=== PATIENT | male | born 1950 | race Caucasian/White ===

== ENCOUNTER 2020-02-29 10:19 | Emergency (ER) | payer MEDICARE, MEDICAID, SELFPAY ==
[2020-02-29] VITALS (10 sets, daily range): BP systolic 150–189; BP diastolic 99–131; PULSE 84–112; RESP 18; TEMP 36.6; O2SAT 93–98; BMI 27.1
--- NOTE | 2020-02-29 10:33 | XRR_ITS ---
PROCEDURE INFORMATION: Exam: XR Chest, 1 View Exam date and time: 02/29/2020 10:48 AM Age: 69 years old Clinical indication: Chest pain TECHNIQUE: Imaging protocol: XR of the chest Views: 1 view. COMPARISON: No relevant prior studies available. FINDINGS: Lungs: There is patchy left basilar opacity consistent with subsegmental atelectasis and consolidation. Pleural space: The costophrenic angles are blunted consistent with minimal effusions. Heart/Mediastinum: Unremarkable. No cardiomegaly. Bones/joints: Unremarkable. XR/XR chest 1V portable [id number] IMPRESSION: 1. Minimal bilateral pleural effusions. 2. Patchy left basilar subsegmental atelectasis/infiltrate.
--- NOTE | 2020-02-29 10:33 | ECG_ITS ---
[facility] Test Date: 2020-02-29 Pat Name: Lucian Mcbride Department: Room: Gender: Male Director College: : 1950 Requested By: Sam Andres Order Number: [id number] Reading MD: GORDON MARTINEZ Measurements Intervals [place] Rate: 106 P: 64 MO: 155 QRS: 64 QRSD: 166 T: 50 QT: 398 QTc: 531 Interpretive Statements SINUS TACHYCARDIA POSSIBLE LEFT ATRIAL ENLARGEMENT [-0.1mV P WAVE IN V1/V2] RIGHT BUNDLE BRANCH BLOCK [120+ ms QRS DURATION, UPRIGHT V1, 40+ ms S IN I/aVL/V4/V5/V6] No previous ECG available for comparison Electronically Signed On 02-29-2020 18:16:18 HOME HEALTH OUTREACH COORDINATOR by GORDON MARTINEZ [id number]
[2020-02-29 11:01] LABS: Basophils # 0.1 10^3/uL (0.0-0.1); Basophils % 0.9 %; Eosinophils # 0.1 10^3/uL (0.0-0.8); Eosinophils % 1.2 %; Hematocrit 41.5 % (42.0-52.0); Lymphocytes # 1.7 10^3/uL (0.8-4.8); Lymphocytes % 25.5 %; Mean Corpuscular HGB Conc 31.3 g/dL (30.0-36.0); Mean Corpuscular Volume 89.2 fL (80-94); Mean Platelet Volume 11.8 fL (7.4-10.4); Monocytes # 0.6 10^3/uL (0.2-0.9); Monocytes % 8.8 %; Neutrophils # 4.18 10^3/uL (1.8-7.7); Neutrophils % 63.4 %; Nucleated Red Blood Cells % 0 %; Platelet Count 213 10^3/cmm (130-400); Red Blood Count 4.65 10^6/uL (4.1-5.3); Red Cell Distribution Width 14.4 % (12.1-15.1); White Blood Count 6.6 10^3/uL (4.0-10.0)
--- NOTE | 2020-02-29 11:11 | ED_ITS ---
HPI - Chest Pain General: Chief Complaint: Chest Pain Stated Complaint: SOB/Occ Chest Pain Time Seen by Provider: 02/29/20 10:31 History of Present Illness: HPI narrative: 69-year-old male presents to the emergency room with complaint of chest discomfort. He has had it for months intermittently, worse when he bends over he feels like he cannot take a deep breath. Sometimes he will get chest pain with it it is not consistent. He states when he exerts himself he does tend to get more short of breath. He is not on any medications he has no known history of heart disease. 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 He denies any productive cough. MD complaint: chest pain Onset (ago): month(s) Timing of current episode: episodic Prior episodes: Yes Onset: during exertion Pain location: left chest Pain radiation: none Severity: mild Quality: heaviness Relieving factors: rest Exacerbating factors: exertion Associated symptoms: Deny abdominal pain, diaphoresis, dyspnea, fever(s), leg edema, nausea, palpitations, sense of impending doom, syncope or vomiting Treatment prior to arrival: none Review of Systems Const: Denies: fever(s) or diaphoresis ENMT: Denies: throat pain, ear or mastoid pain, nasal discharge or nasal congestion Card: Denies: palpitations or syncope Resp: Denies: dyspnea GI: Denies: abdominal pain, nausea or vomiting : Denies: flank pain, dysuria, urinary frequency or urinary urgency Skin/Breast: Denies: rash or pruritus Physical Exam Const: COMMON NORMALS: no acute distress GENERAL APPEARANCE: cooperative and comfortable ORIENTATION/CONSCIOUSNESS: Yes awake, Yes oriented to person, Yes oriented to place and Yes oriented to time HENMT: COMMON NORMALS: normocephalic, atraumatic and hearing grossly normal bi laterally HEAD & SCALP: normocephalic and atraumatic Neck/C-Spine: COMMON NORMALS: no JVD Resp: COMMON NORMALS: normal respiratory effort, No retractions, No use of accessory muscles and clear to auscultation bilaterally AUSCULTATION: clear to auscultation bilaterally Cardio: COMMON NORMALS: no JVD, regular rate, regular rhythm and No murmurs present (Cardio) RATE: regular rate RHYTHM: regular rhythm GI: COMMON NORMALS: Soft to palpation and No hepatosplenomegaly present AUSCULTATION: Yes normoactive bowel sounds PALPATION: Yes Soft to palpation, No Tenderness to palpation present (GI), No Guarding due to palpation present (GI) and Yes No hepatosplenomegaly present Extremity: COMMON NORMALS: normal to inspection, capillary refill normal, no clubbing, cyanosis or edema, no calf tenderness and no pedal edema Neuro: SENSORIUM/ORIENTATION: Yes oriented to person, Yes oriented to place and Yes oriented to time Skin: COMMON NORMALS: no rashes or lesions noted GENERAL SKIN EXAM: no rashes or lesions noted Course Vital Signs: Vital signs: Vital Signs Temperature 97.9 F 02/29/20 13:18 Pulse Rate 92 02/29/20 14:23 Respiratory Rate 18 02/29/20 14:23 Blood Pressure 150/113 02/29/20 14:26 Pulse Oximetry 97 02/29/20 14:23 MDM - Chest Pain MDM Narrative: Medical decision making narrative: EKG and troponins unremarkable discharge patient home and going to start him on some antihypertensives. We will get him set up for an outpatient sestamibi stress test. Follow-up with his blood pressure in 1 week with a primary care doctor and then again after stress test completed return if has problems. Lab Data: Labs: Lab Results 02/29/20 02/29/20 02/29/20 Range/Units 10:46 10:46 10:46 WBC 6.6 (4.0-10.0) 10^3/ uL RBC 4.65 (4.1-5.3) 10^6/u L Hgb 13.0 (11.7-16.6) g/dL Hct 41.5 L (42.0-52.0) % MCV 89.2 (80-94) fL MCH 28.0 (28.0-34.0) pg MCHC 31.3 (30.0-36.0) g/dL RDW 14.4 (12.1-15.1) % Plt Count 213 (130-400) 10^3/c mm MPV 11.8 H (7.4-10.4) fL Neut % (Auto) 63.4 % Lymph % (Auto) 25.5 % [place] % (Auto) 8.8 % Eos % (Auto) 1.2 % Baso % (Auto) 0.9 % Neut # (Auto) 4.18 (1.8-7.7) 10^3/u L Lymph # (Auto) 1.7 (0.8-4.8) 10^3/u L [place] # (Auto) 0.6 (0.2-0.9) 10^3/u L Eos # (Auto) 0.1 (0.0-0.8) 10^3/u L Baso # (Auto) 0.1 (0.0-0.1) 10^3/u L Nucleated RBC % (a uto) 0 % Nucleated RBCs # 0.0 /100WBC Sodium 137 (136-145) mmol/L Potassium 3.2 L (3.5-5.1) mmol/L Chloride 100 (98-107) mmol/L Carbon Dioxide 26 (22-29) mmol/L Anion Gap 14.2 (5-19) BUN 11 (8-23) mg/dL Creatinine 1.3 H (0.7-1.2) mg/dL GFR Calculation 54.7 L (90-130) mL/min Glucose 132 H (65-115) mg/dL Calculated Osmolal ity 285 (285-295) mOsm/k g Calcium 8.8 (8.5-10.5) mg/dL Total Bilirubin 1.3 H (0.15-1.2) mg/dL AST 15 (0-40) U/L ALT 11 (0-41) U/L Alkaline Phosphata se 85 (40-130) IU/L Creatine Kinase 38 L (39-308) U/L Troponin T Baselin e 29 H (0-15) ng/L Troponin T 120 Min [place] (0-15) ng/L Delta Troponin T (0-10) ABS# Total Protein 6.3 L (6.6-8.7) g/dL Albumin 4.0 (3.5-5.2) g/dL Globulin 2.3 (1.3-4.6) g/dL SARS-CoV-2 Ag (Rap id) (Negative) 02/29/20 02/29/20 Range/Units 12:03 12:45 WBC (4.0-10.0) 10^3/ uL RBC (4.1-5.3) 10^6/u L Hgb (11.7-16.6) g/dL Hct (42.0-52.0) % MCV (80-94) fL MCH (28.0-34.0) pg MCHC (30.0-36.0) g/dL RDW (12.1-15.1) % Plt Count (130-400) 10^3/c mm MPV (7.4-10.4) fL Neut % (Auto) % Lymph % (Auto) % [place] % (Auto) % Eos % (Auto) % Baso % (Auto) % Neut # (Auto) (1.8-7.7) 10^3/u L Lymph # (Auto) (0.8-4.8) 10^3/u L [place] # (Auto) (0.2-0.9) 10^3/u L Eos # (Auto) (0.0-0.8) 10^3/u L Baso # (Auto) (0.0-0.1) 10^3/u L Nucleated RBC % (a uto) % Nucleated RBCs # /100WBC Sodium (136-145) mmol/L Potassium (3.5-5.1) mmol/L Chloride (98-107) mmol/L Carbon Dioxide (22-29) mmol/L Anion Gap (5-19) BUN (8-23) mg/dL Creatinine (0.7-1.2) mg/dL GFR Calculation (90-130) mL/min Glucose (65-115) mg/dL Calculated Osmolal ity (285-295) mOsm/k g Calcium (8.5-10.5) mg/dL Total Bilirubin (0.15-1.2) mg/dL AST (0-40) U/L ALT (0-41) U/L Alkaline Phosphata se (40-130) IU/L Creatine Kinase (39-308) U/L Troponin T Baselin e (0-15) ng/L Troponin T 120 Min [place] 27.58 H (0-15) ng/L Delta Troponin T -1.42 L (0-10) ABS# Total Protein (6.6-8.7) g/dL Albumin (3.5-5.2) g/dL Globulin (1.3-4.6) g/dL SARS-CoV-2 Ag (Rap id) Negative (Negative) Discharge Plan Discharge Patient Disposition: Home Clinical Impression: Atypical chest pain, FAULKNER (dyspnea on exertion), Hypertension Condition: Stable Prescriptions: New amlodipine 2.5 mg tablet 2.5 mg PO DAILY Qty: 30 RF: 0 Toprol XL 25 mg tablet extended release 24 hr 25 mg PO DAILY Qty: 30 RF: 0 aspirin 81 mg tablet,delayed release (DR/EC) 81 mg PO DAILY Qty: 30 RF: 0 Discharge Orders: Discharge ED (Routine); Ordered 02/29/20 Ordered By: Sam Chacon Discharge Diet: Usual diet Discharge Activity: Limit activity as instructed Activity Restrictions/Additional Instructions: Recheck blood pressure your primary care doctor within the week. To start aspirin daily as well as a 2 blood pressure medications given to you today. Case management will call to set up a outpatient sestamibi stress test. Coding Level of Care Code ED Salmon Troll Fisher for Joe Fwd Exam Comprehensive
[2020-02-29 11:47] LABS: Alanine Aminotransferase 11 U/L (0-41); Alkaline Phosphatase 85 IU/L (40-130); Anion Gap 14.2 (5-19); Aspartate Amino Transferase 15 U/L (0-40); Blood Urea Nitrogen 11 mg/dL (8-23); Calcium 8.8 mg/dL (8.5-10.5); Carbon Dioxide 26 mmol/L (22-29); Chloride 100 mmol/L (98-107); Creatine Phosphokinase 38 U/L (39-308); Globulin 2.3 g/dL (1.3-4.6); Glomerular Filtration Rate 54.7 mL/min (90-130); Glucose 132 mg/dL (65-115); Osmolality Calculated 285 mOsm/kg (285-295); Potassium 3.2 mmol/L (3.5-5.1); Sodium 137 mmol/L (136-145); Total Bilirubin 1.3 mg/dL (0.15-1.2); Total Protein 6.3 g/dL (6.6-8.7)
[2020-02-29 11:49] LABS: Troponin(5th) Baseline 29 ng/L (0-15)
--- NOTE | 2020-02-29 12:33 | ECG_ITS ---
[facility] Test Date: 2020-02-29 Pat Name: Lucian Mcbride Department: Room: Gender: Male Automatic Lathe Tender: : 1950 Requested By: Sam Andres Order Number: [id number] Reading MD: GORDON MARTINEZ Measurements Intervals [place] Rate: 96 P: 63 NV: 166 QRS: 69 QRSD: 163 T: 42 QT: 415 QTc: 525 Interpretive Statements SINUS RHYTHM POSSIBLE LEFT ATRIAL ENLARGEMENT [-0.1mV P WAVE IN V1/V2] RIGHT BUNDLE BRANCH BLOCK [120+ ms QRS DURATION, UPRIGHT V1, 40+ ms S IN I/aVL/V4/V5/V6] No previous ECG available for comparison Electronically Signed On 02-29-2020 18:17:28 HORSE GROOMER by GORODN MARTINEZ [id number]
[2020-02-29 13:06] LABS: SARS Covid-2 Antigen Negative (Negative)
[2020-02-29 13:18] LABS: Troponin 5 2HR 27.58 ng/L (0-15)
[2020-02-29] MEDS: potassium chloride oral liq 20 mEq/15 mL UDC 40 MEQ PO (13:19)
[2020-02-29 13:26] LABS: Troponin 5 2HR Delta -1.42 ABS# (0-10)
[2020-02-29] MEDS: amlodipine 5 mg Tablet PO (14:00)
[2020-02-29] MEDS: metoprolol tartrate 1 mg/1 mL SDV 5 mL 5 MG IV (14:00)
[2020-02-29] MEDS: metoprolol succinate ER (24 HR) 25 mg Tablet PO (14:17)
--- NOTE | 2020-03-02 15:00 | DCPLANNER ---
center manager had message to schedule an out patient stress test for patient, and to get patient established with a primary care physician. center manager called patient to speak with patient to get stress test ordered and get established with a physician, patient stated that was not feeling any better that he hoped that the medicine worked and he was in no state to discuss this, he was tired. center manager told patient that when he felt better that he could call bottle caser in the ED and the bottle caser would be happy to help him.
== END 2020-02-29 14:37 | disposition home or self-care (01) ==
PROVIDERS: Emergency Provider Family Medicine
DX: R07.89 Other chest pain (principal); R06.00 Dyspnea, unspecified; I10 Essential (primary) hypertension; Z79.82 Long term (current) use of aspirin
CPT/HCPCS: 12345; 71045; 80053; 82550; 84484; 85025; 87426; 93005; 96374; 99283; 99284; J3490

== ENCOUNTER → 2020-06-18 13:37 | Outpatient (BNVA) | payer MEDICARE, MEDICAID, SELFPAY | PROVIDERS: Visit Provider Family Medicine | DX: I10 Essential (primary) hypertension (principal); Z79.899 Other long term (current) drug therapy | CPT/HCPCS: 80053; 80061; 82043; 83036; 85025 ==

== ENCOUNTER 2020-07-30 08:52 | Emergency (ER) | payer MEDICARE, MEDICAID, SELFPAY ==
[2020-07-30 09:04] VITALS: BP 181/104; PULSE 100; RESP 15; TEMP 36.7; O2SAT 97; BMI 24.7
[2020-07-30 09:08] VITALS: RESP 15
--- NOTE | 2020-07-30 09:11 | XR_ITS ---
WS: [id number] Left knee, 3 views, 07/30/2020 Clinical Data: pain/effusion Comparison: None. Findings: No fractures or dislocations are seen. The joint spaces are normal. The patella is intact. There is a supra patellar bursal effusion. There is a small 0.8 cm bony spur of the lateral femoral condyle whi ch may be from old trauma. XR/XR knee LT 3V* [id number] Impression: 1. Small bony spur of the lateral femoral condyle. 2. Suprapatellar effusion. Kellgren-Piyush Classification: grade 1 (doubtful): doubtful joint space narr owing and possible osteophytic lipping
--- NOTE | 2020-07-30 09:12 | ED_ITS ---
HPI - Extremity Problem General: Chief complaint: Extremity Problem,Nontraumatic Stated complaint: swelling in left knee Time Seen by Provider: 07/30/20 08:53 Source: patient Mode of arrival: wheelchair Limitations: no limitations History of Present Illness: HPI Narrative: Patient is a 69-year-old male who presents to ED today with complaint of left knee pain and swelling that he has had over the past 3 to 4 days. He does not have any known injury or trauma to the knee. He has not noticed any redness surrounding the joint. He has not had any cuts/scrapes, lacerations, bug bites, etc. denies history of gout. No history of gonorrhea. Reports previous surgery to his right knee and states that his left knee is his good knee so often takes the brunt with ambulation. MD Complaint: joint swelling and joint pain Onset (ago): day(s) Pain Consistency: constant Location: left and lower extremity (knee) Radiation: none Relieving factors: immobilization Exacerbating factors: range of motion, weight bearing and walking Associated symptoms: Reports no associated symptoms; Deny chest pain, fever(s) or rash Review of Systems Const: Denies: fever(s), chills, body aches, fatigue or malaise Eyes: Denies: change in vision or blurry vision ENMT: Denies: throat pain or odynophagia Card: Denies: chest pain Resp: Denies: dyspnea Musc: Reports: joint pain (L knee) and joint swelling (L knee); Denies: neck pain, back pain, extremity pain, extremity swelling or joint redness Skin/Breast: Denies: rash Neuro: Denies: numbness in extremities or sensory changes [facility] ED PFSH: Medical History (Updated 07/30/20 @ 09:31 by REBEKA Champagne) Bipolar 2 disorder Essential hypertension History of kidney stones Surgical History H/O lithotripsy History of right knee surgery Social History Smoking and tobacco status: current some day smoker cigars Alcohol intake: former Physical Exam Const: COMMON NORMALS: no acute distress, patient oriented x3, no limitations and alert GENERAL APPEARANCE: cooperative ORIENTATION/CONSCIOUSNESS: Yes awake, Yes oriented to person, Yes oriented to place and Yes oriented to time HENMT: COMMON NORMALS: normocephalic and atraumatic HEAD & SCALP: normocephalic and atraumatic Resp: COMMON NORMALS: normal respiratory effort and clear to auscultation bilaterally AUSCULTATION: clear to auscultation bilaterally Cardio: COMMON NORMALS: regular rate and regular rhythm RATE: regular rate RHYTHM: regular rhythm Extremity: COMMON NORMALS: normal to inspection, capillary refill normal, no clubbing, cyanosis or edema, no calf tenderness and no pedal edema GENERAL: Yes normal exam except as noted LEFT LOWER EXTREMITY: Yes knee joint (joint effusion present; no redness/warmth) Left knee: Yes ROM (slightly limited secondary to swelling ), Yes neurovascular exam (normal) and Yes other (pain not out of proportion to exam) Neuro: COMMON NORMALS: patient oriented x3, moves all extremities, no focal motor deficits and no sensory deficits noted SENSORIUM/ORIENTATION: Yes alert, Yes oriented to person, Yes oriented to place and Yes oriented to time Skin: COMMON NORMALS: no rashes or lesions noted GENERAL SKIN EXAM: no rashes or lesions noted TRAUMA: no lacerations or abrasions Course Vital Signs: Vital signs: Vital Signs Temperature 98.1 F 07/30/20 09:04 Pulse Rate 100 07/30/20 09:04 Respiratory Rate 15 07/30/20 09:08 Blood Pressure 181/104 07/30/20 09:04 Pulse Oximetry 97 07/30/20 09:04 MDM - Extremity (Nontraumatic) MDM Narrative: Medical decision making narrative: Recommend ice/elevation and Aleve. He has a set of crutches he can use. Refuses RX for steroids. Was given IM toradol here. States he has an appointment with PCP in approx 2 weeks and can follow up and obtain ortho follow up if symptoms do not improve. I have no concerns for septic joint at this time. Imaging Data^: XR L knee: Radiologist's impression: [address] [address] ReportSigned Patient: Griselda Mcbride #: [id number]: 1Acct#:[id number]/Sex: 69 / MADM Date: 07/30/20Loc: ERRoom/Bed:Attending Dr: Ordering Provider/Ordering MD: Yadira King Date of Service: 07/30/20 Procedure(s): XR knee LT 3V* [id number] Accession Number(s): [id number] Report Number: [id number] WS: [id number] Left knee, 3 views, 07/30/2020 Clinical Data: pain/effusion Comparison: None. Findings: No fractures or dislocations are seen. The joint spaces are normal. The patella is intact. There is a supra patellar bursal effusion. There is a small 0.8 cm bony spur of the lateral femoral condyle which may be from old trauma. XR/XR knee LT 3V* [id number] Impression: 1. Small bony spur of the lateral femoral condyle. 2. Suprapatellar effusion. Kellgren-Piyush Classification: grade 1 (doubtful): doubtful joint space narrowing and possible osteophytic lipping Dictated By:Kaley Pradhan MDSigned By:Kaley Pradhan MDSigned Date/Time:07/30/20929DD/ 6 Discharge Plan Discharge Patient Disposition: Home Clinical Impression: Effusion of left knee Condition: Stable Prescriptions: No Action benazepril-hydrochlorothiazide 10-12.5 mg tablet 1 tab PO DAILY 30 Days Qty: 30 RF: 0 amlodipine 10 mg tablet 10 mg PO DAILY 90 Days Qty: 90 RF: 1 Discharge Orders: Discharge ED (Routine); Ordered 07/30/20 Ordered By: Yadira King Patient Instructions: Knee Effusion (ED), RICE Therapy (ED) Activity Restrictions/Additional Instructions: As we discussed you may continue to take Aleve as directed for pain and swelling. Continue using the LINA wrap as we discussed. Refer to the handout for ice and elevation instructions. Please follow-up with primary care at your scheduled upcoming appointment. They may refer you to orthopedics if they feel this is indicated. Coding Level of Care Code ED Kiss Mixer for Joe Fwd Exam Detailed
[2020-07-30] MEDS: ketorolac 30 mg/mL INJ IM (09:56)
[2020-07-30 09:58] VITALS: BP 158/95; PULSE 97; RESP 15; O2SAT 96
== END 2020-07-30 10:00 | disposition home or self-care (01) ==
PROVIDERS: Emergency Provider Physician Assistant; PCP Family Medicine
DX: M25.462 Effusion, left knee (principal); I10 Essential (primary) hypertension; F17.210 Nicotine dependence, cigarettes, uncomplicated
CPT/HCPCS: 73562; 96372; 99283; J1885

== ENCOUNTER 2020-10-03 13:46 | Emergency (ER) | payer MEDICARE, MEDICAID, SELFPAY ==
[2020-10-03 14:01] VITALS: BP 154/73; PULSE 94; RESP 19; TEMP 37.5; O2SAT 95
[2020-10-03 14:32] VITALS: BP 168/99; PULSE 100; RESP 18; TEMP 37.2; O2SAT 98
[2020-10-03 15:52] VITALS: BP 168/95; PULSE 90; RESP 18; O2SAT 99
--- NOTE | 2020-10-03 16:06 | CTR_ITS ---
PROCEDURE INFORMATION: Exam: CT Abdomen And Pelvis With Contrast Exam date and time: 10/03/2020 4:06 PM Age: 70 years old Clinical indication: Abdominal pain; Localized; Lower TECHNIQUE: Imaging protocol: Computed tomography of the abdomen and pelvis with contrast. Radiation optimization: All CT scans at this facility use at least one of these dose optimization techniques: automated exposure control; mA and/or kV adjustment per patient size (includes targeted exams where dose is matched to clinical indication); or iterative reconstruction. Contrast material: OMNI 300; Contrast volume: 95 ml; Contrast route: INTRAVENOUS (IV); COMPARISON: MR lumbar spine wo con* [id number] 05/27/2016 1:15 PM RADIATION DOSE METRICS: Total DLP (mGy-cm): 1484.29 FINDINGS: Liver: Normal. No mass. Gallbladder and bile ducts: Normal. No calcified stones. No ductal dilation. Pancreas: Normal. No ductal dilation. Spleen: Normal. No splenomegaly. Adrenal glands: Normal. No mass. Kidneys and ureters: Multiple bilateral non-obstructing kidney stones. Negative for hydronephrosis. No acute perinephric inflammatory fat stranding seen. Several bilateral simple renal cortical cysts. Additionally, there is a circumscribed homogeneous hyperdense right renal lower pole posterior cortical lesion measuring 1.9 cm. A homogeneous, hyperdense left renal lower pole cortically based lesion measures 1.3 cm diameter. Stomach and bowel: Unremarkable. No obstruction. No mucosal thickening. Appendix: No evidence of appendicitis. Intraperitoneal space: Unremarkable. No free air. No significant fluid collection. Vasculature: Scattered atherosclerosis. No aneurysm. Lymph nodes: Unremarkable. No enlarged lymph nodes. Urinary bladder: Unremarkable as visualized. Reproductive: Mild prostate gland enlargement. Bones/joints: The lumbar spine demonstrates marked discogenic and apophyseal joint degenerative changes at multiple levels. No acute fractures. Soft tissues: Fat containing left inguinal hernia. CT/CT abdomen pelvis w con* [id number] IMPRESSION: 1. Negative for acute abdominopelvic pathology. 2. Fat containing left inguinal hernia. 3. Numerous bilateral nonobstructing kidney stones. 4. Multiple simple bilateral renal cysts. 5. Additional hyperdense bilateral renal cortical lesions. Most likely proteinaceous cysts, however incomplete characterization on single-phase imaging. Recommend outpatient nonemergent ultrasound correlation. COMMENTS: Consistent with the [employer]'s Incidental Findings Committee white paper (J Am Micheline Radiol 2018): Any incidental renal lesion less than 1 cm or classified as too small to characterize, or any incidental cystic renal lesion characterized as simple-appearing, is likely benign. No follow-up imaging is recommended for these lesions per consensus recommendations based on imaging criteria. Radiation Dose CTDIVOL = (mGy): DLP = 1484.29 (mGy-cm)
[2020-10-03 16:45] LABS: Add Urine Microscopic? NO; Charge for UA Resulting for Rev
[2020-10-03 17:00] LABS: Basophils % 0.4 %; Eosinophils % 0.3 %; Hematocrit 40.8 % (42.0-52.0); Hemoglobin 14.4 g/dL (11.7-16.6); Lymphocytes # 1.8 10^3/uL (0.8-4.8); Lymphocytes % 22.8 %; Mean Corpuscular HGB Conc 35.3 g/dL (30.0-36.0); Mean Corpuscular Hemoglobin 31.2 pg (28.0-34.0); Mean Corpuscular Volume 88.5 fl (80-94); Mean Platelet Volume 10.8 fL (7.4-10.4); Monocytes # 0.5 10^3/uL (0.2-0.9); Monocytes % 6.4 %; Neutrophils # 5.48 10^3/uL (1.8-7.7); Neutrophils % 69.7 %; Nucleated Red Blood Cells % 0 %; Platelet Count 182 10^3/cmm (130-400); Red Blood Count 4.61 10^6/uL (4.1-5.3); Red Cell Distribution Width 15.8 % (12.1-15.1); White Blood Count 7.9 10^3/uL (4.0-10.0)
[2020-10-03 17:03] LABS: Bilirubin Urine 1+ (Negative); Blood Urine Neg (Negative); Glucose Urine UA Norm (Normal); Ketones Urine Negative (Negative); Leukocyte Esterase Urine Negative (Negative); Nitrate Urine Negative (Negative); Protein Urine Neg (Negative); Specific Gravity, Urine 1.015 (1.005-1.030); Urine Appearance Clear (CLEAR); Urine Color Yellow (Yellow); Urobilinogen Urine Norm (Negative); pH Urine 6 (5-7)
[2020-10-03 17:19] LABS: Alanine Aminotransferase 7 U/L (0-41); Albumin Level 4.3 g/dL (3.5-5.2); Alkaline Phosphatase 91 IU/L (40-130); Anion Gap 15.6 (5-19); Aspartate Amino Transferase 14 U/L (0-40); Blood Urea Nitrogen 6 mg/dL (8-23); Carbon Dioxide 25 mmol/L (22-29); Chloride 103 mmol/L (98-107); Globulin 2.8 g/dL (1.3-4.6); Glomerular Filtration Rate 73.9 mL/min (90-130); Glucose 103 mg/dL (65-115); Lipase 38 U/L (13-60); Osmolality Calculated 288 mOsm/kg (285-295); Potassium 3.6 mmol/L (3.5-5.1); Sodium 140 mmol/L (136-145); Total Protein 7.1 g/dL (6.6-8.7)
[2020-10-03] MEDS: iohexol 300 mg/mL 100 mL Btl IV (17:59)
[2020-10-03 18:04] VITALS: BP 144/66; O2SAT 98
--- NOTE | 2020-10-03 18:49 | W.ED.ABDPA2 ---
HPI - Abdominal Pain General: Chief Complaint: Abdominal Pain Stated Complaint: abdomen pain post hernia Time Seen by Provider: 10/03/20 15:22 Source: patient Mode of arrival: ambulatory Limitations: no limitations History of Present Illness: HPI narrative: Patient is a 70-year-old male who presents to the emergency department with left groin pain. He states that his primary care provider told him that he has a hernia and that if you felt he got worse he needed to come to the emergency department to be evaluated. He states that his pain is getting worse over the last few days and is hernia appears to be getting bigger so he wants to be evaluated. MD elicited complaint: abdominal pain Onset (ago): day(s) (3) Pain Consistency: constant Location: Groin Severity: moderate Quality: dull Radiation: none Migration to: no migration Exacerbating factors: other (cough) Relieving factors: nothing Associated Symptoms: Denies anorexia, belching, bloating, change in bowel habits, change in stool character, chills, coffee ground emesis, constipation, GI cramping, diarrhea, dyspepsia, dysuria, excessive flatus, fever(s), heartburn, hematochezia, hematuria, hematemesis, fecal incontinence, loose stools, melena, nausea, poor appetite, syncope and vomiting Review of Systems General: Reports: 10 or more systems reviewed and unremarkable except in HPI and below Const: Denies: fever(s) or chills Card: Denies: syncope GI: Denies: nausea, vomiting, hematemesis, coffee ground emesis, heartburn, diarrhea, constipation, bloating, GI cramping, belching, excessive flatus, fecal incontinence, change in bowel habits, change in stool character, hematochezia or melena : Denies: dysuria or hematuria PFS ED PFSH: Medical History Bipolar 2 disorder Essential hypertension History of kidney stones Surgical History H/O lithotripsy History of right knee surgery Social History Smoking and tobacco status: current some day smoker cigars Alcohol intake: former Physical Exam Const: COMMON NORMALS: no acute distress, average body habitus, patient oriented x3, no limitations, healthy appearing, alert and well nourished HENMT: COMMON NORMALS: normocephalic, atraumatic and moist oral mucous membranes HEAD & SCALP: normocephalic and atraumatic Neck/C-Spine: COMMON NORMALS: no meningeal signs and no JVD Resp: COMMON NORMALS: normal respiratory effort, No retractions, No use of accessory muscles, clear to auscultation bilaterally and percussion normal AUSCULTATION: clear to auscultation bilaterally PERCUSSION: percussion normal Cardio: COMMON NORMALS: no JVD, regular rate, regular rhythm, S1 normal heart sound present, S2 normal heart sound present, No gallops present (Cardio), No clicks present (Cardio), No murmurs present (Cardio), No rub (Cardio) and Peripheral pulses 2+ throughout RATE: regular rate RHYTHM: regular rhythm HEART SOUNDS: S1 normal heart sound present and S2 normal heart sound present PERIPHERAL PULSES: Peripheral pulses 2+ throughout GI: COMMON NORMALS: Normal to inspection, nondistended, normoactive bowel sounds present, Soft to palpation, non-tender, No hepatosplenomegaly present, no masses and no bruits PALPATION: Yes Soft to palpation, Yes No hepatosplenomegaly present and Yes Hernia present indirect inguinal Indirect inguinal hernia laterality: left (reducible. Tender.) Extremity: COMMON NORMALS: normal to inspection, full ROM, capillary refill normal, no calf tenderness and no pedal edema Neuro: COMMON NORMALS: patient oriented x3 SENSORIUM/ORIENTATION: Yes alert MENINGEAL SIGNS: Yes no meningeal signs Course Vital Signs: Vital signs: Vital Signs Temperature 98.9 F 10/03/20 14:32 Pulse Rate 90 10/03/20 15:52 Respiratory Rate 18 10/03/20 15:52 Blood Pressure 144/66 10/03/20 18:04 Pulse Oximetry 98 10/03/20 18:04 MDM - Abdominal Pain MDM Narrative: Medical decision making narrative: This 70-year-old male presents to the emergency department with complaints of your left inguinal hernia. He is concerned that it is complicated and he says it is getting worse. He said that his primary care provider had advised that he come to the emergency room if he felt he was getting worse. He felt he is hernia was worsening, which is why he came in today. On evaluation he is noted to have relatively unremarkable labs, 60 scan of his abdomen and pelvis only showed a fat-containing hernia with no complications of the hernia. When I explained to him that his hernia has no complicating features and that he does not need to be admitted for emergent surgery he got very upset and angry, interrupted me and stop me from talking. He said there was nothing else for me to tell him and that he wanted to leave. He advised that I leave his room and he said that he was going to leave. He then left AGAINST MEDICAL ADVICE. Medical Records: Attestation: I reviewed the patient's medical records. Lab Data: Attestation: I reviewed the patient's lab results. Labs: Lab Results 10/03/20 10/03/20 10/03/20 Range/Units 16:10 16:40 16:40 WBC 7.9 (4.0-10.0) 10^3/ uL RBC 4.61 (4.1-5.3) 10^6/u L Hgb 14.4 (11.7-16.6) g/dL Hct 40.8 L (42.0-52.0) % MCV 88.5 (80-94) fl MCH 31.2 (28.0-34.0) pg MCHC 35.3 (30.0-36.0) g/dL RDW 15.8 H (12.1-15.1) % Plt Count 182 (130-400) 10^3/c mm MPV 10.8 H (7.4-10.4) fL Neut % (Auto) 69.7 % Lymph % (Auto) 22.8 % [place] % (Auto) 6.4 % Eos % (Auto) 0.3 % Baso % (Auto) 0.4 % Neut # (Auto) 5.48 (1.8-7.7) 10^3/u L Lymph # (Auto) 1.8 (0.8-4.8) 10^3/u L [place] # (Auto) 0.5 (0.2-0.9) 10^3/u L Eos # (Auto) 0.0 (0.0-0.8) 10^3/u L Baso # (Auto) 0.0 (0.0-0.1) 10^3/u L Nucleated RBC % (a uto) 0 % Nucleated RBCs # 0.0 /100WBC Sodium 140 (136-145) mmol/L Potassium 3.6 (3.5-5.1) mmol/L Chloride 103 (98-107) mmol/L Carbon Dioxide 25 (22-29) mmol/L Anion Gap 15.6 (5-19) BUN 6 L (8-23) mg/dL Creatinine 1.0 (0.7-1.2) mg/dL GFR Calculation 73.9 L (90-130) mL/min Glucose 103 (65-115) mg/dL Calculated Osmolal ity 288 (285-295) mOsm/k g Calcium 9.0 (8.5-10.5) mg/dL Total Bilirubin 1.0 (0.15-1.2) mg/dL AST 14 (0-40) U/L ALT 7 (0-41) U/L Alkaline Phosphata se 91 (40-130) IU/L Total Protein 7.1 (6.6-8.7) g/dL Albumin 4.3 (3.5-5.2) g/dL Globulin 2.8 (1.3-4.6) g/dL Lipase 38 (13-60) U/L Urine Color Yellow (Yellow) Urine Appearance Clear (CLEAR) Urine pH 6 (5-7) Ur Specific Gravit y 1.015 (1.005-1.030) Urine Protein Neg (Negative) Urine Glucose (UA) Norm (Normal) Urine Ketones Negative (Negative) Urine Blood Neg (Negative) Urine Nitrate Negative (Negative) Urine Bilirubin 1+ H (Negative) Urine Urobilinogen Norm (Negative) mg/dL Ur Leukocyte Anna ase Negative (Negative) Imaging Data ^: CT Abd/Pel: Attestation: I personally reviewed and interpreted this imaging study as follows: Radiologist's impression: [address] [id number] Scan ReportSigned Patient: Griselda Mcbride #: [id number]: 1Acct#:[id number]/Sex: 70 / MADM Date: 10/03/20Loc: ERRoom/Bed:Attending Dr: Ordering Provider/Ordering MD: Eron Guadarrama [place] [facility] [place] of Service: 10/03/20 Procedure(s): CT abdomen pelvis w con* [id number] Accession Number(s): [id number] Report Number: [id number] PROCEDURE INFORMATION: Exam: CT Abdomen And Pelvis With Contrast Exam date and time: 10/03/2020 4:06 PM Age: 70 years old Clinical indication: Abdominal pain; Localized; Lower TECHNIQUE: Imaging protocol: Computed tomography of the abdomen and pelvis with contrast. Radiation optimization: All CT scans at this facility use at least one of these dose optimization techniques: automated exposure control; mA and/or kV adjustment per patient size (includes targeted exams where dose is matched to clinical indication); or iterative reconstruction. Contrast material: OMNI 300; Contrast volume: 95 ml; Contrast route: INTRAVENOUS (IV); COMPARISON: MR lumbar spine wo con* [id number] 05/27/2016 1:15 PM RADIATION DOSE METRICS: Total DLP (mGy-cm): 1484.29 FINDINGS: Liver: Normal. No mass. Gallbladder and bile ducts: Normal. No calcified stones. No ductal dilation. Pancreas: Normal. No ductal dilation. Spleen: Normal. No splenomegaly. Adrenal glands: Normal. No mass. Kidneys and ureters: Multiple bilateral non-obstructing kidney stones. Negative for hydronephrosis. No acute perinephric inflammatory fat stranding seen. Several bilateral simple renal cortical cysts. Additionally, there is a circumscribed homogeneous hyperdense right renal lower pole posterior cortical lesion measuring 1.9 cm. A homogeneous, hyperdense left renal lower pole cortically based lesion measures 1.3 cm diameter. Stomach and bowel: Unremarkable. No obstruction. No mucosal thickening. Appendix: No evidence of appendicitis. Intraperitoneal space: Unremarkable. No free air. No significant fluid collection. Vasculature: Scattered atherosclerosis. No aneurysm. Lymph nodes: Unremarkable. No enlarged lymph nodes. Urinary bladder: Unremarkable as visualized. Reproductive: Mild prostate gland enlargement. Bones/joints: The lumbar spine demonstrates marked discogenic and apophyseal joint degenerative changes at multiple levels. No acute fractures. Soft tissues: Fat containing left inguinal hernia. CT/CT abdomen pelvis w con* [id number] IMPRESSION: 1. Negative for acute abdominopelvic pathology. 2. Fat containing left inguinal hernia. 3. Numerous bilateral nonobstructing kidney stones. 4. Multiple simple bilateral renal cysts. 5. Additional hyperdense bilateral renal cortical lesions. Most likely proteinaceous cysts, however incomplete characterization on single-phase imaging. Recommend outpatient nonemergent ultrasound correlation. COMMENTS: Consistent with the [employer] [employer]'s Incidental Findings Committee white paper (J Am Micheline Radiol 2018): Any incidental renal lesion less than 1 cm or classified as too small to characterize, or any incidental cystic renal lesion characterized as simple-appearing, is likely benign. No follow-up imaging is recommended for these lesions per consensus recommendations based on imaging criteria. Radiation Dose CTDIVOL = (mGy): DLP = 1484.29 (mGy-cm) Dictated By:Mo Claudio By:Mo Claudio Date/Time:10/03/20D/ 20 Discharge Plan Discharge Patient Disposition: Left Against Medical Advice Clinical Impression: Left inguinal hernia Prescriptions: No Action amlodipine 10 mg tablet 10 mg PO DAILY 90 Days Qty: 90 RF: 1 naproxen sodium [Flanax (naproxen)] 220 mg tablet 220 mg PO BID PRN (Reason: Pain) RF: 0 losartan 25 mg tablet 25 mg PO DAILY Qty: 30 RF: 0 pantoprazole 40 mg tablet,delayed release (DR/EC) 40 mg PO DAILY Qty: 90 RF: 0 Referrals: Gisell Galloway DO [Primary Care Provider] - Coding Level of Care Code ED Robotics Application Engineer for Joe Feldman
== END 2020-10-03 19:00 | disposition left against medical advice (07) ==
PROVIDERS: Emergency Provider Family Medicine; PCP Family Medicine
DX: K40.90 Unilateral inguinal hernia, without obstruction or gangrene, not specified as recurrent (principal); I10 Essential (primary) hypertension; F17.290 Nicotine dependence, other tobacco product, uncomplicated; Z53.29 Procedure and treatment not carried out because of patient's decision for other reasons
CPT/HCPCS: 74177; 80053; 81003; 83690; 85025; 99283; Q9967

== ENCOUNTER → 2021-06-01 14:14 | Outpatient (BNVA) | payer MEDICARE, MEDICAID, SELFPAY | PROVIDERS: PCP Family Medicine; Visit Provider Family Medicine | DX: I10 Essential (primary) hypertension (principal); K21.9 Gastro-esophageal reflux disease without esophagitis | CPT/HCPCS: 80053; 80061; 82043; 85025 ==

== ENCOUNTER → 2023-04-04 14:09 | Outpatient (BNVA) | payer MEDICARE, MEDICAID, SELFPAY | PROVIDERS: PCP Family Medicine; Visit Provider Internal Medicine Cardiovascular Disease | DX: R07.89 Other chest pain (principal); I48.19 Other persistent atrial fibrillation; Z79.01 Long term (current) use of anticoagulants; I11.9 Hypertensive heart disease without heart failure; I50.9 Heart failure, unspecified; F17.229 Nicotine dependence, chewing tobacco, with unspecified nicotine-induced disorders | CPT/HCPCS: 99204; 99205 ==

== ENCOUNTER 2023-04-26 10:02 | Outpatient (CLI) | payer MEDICARE, MEDICAID, SELFPAY ==
--- NOTE | 2023-04-26 | ECG_ITS ---
[facility] Test Date: 2023-04-26 Pat Name: Lucian Mcbride Department: Room: Gender: Male Hourly Sales Staff: : 1950 Requested By: Jose Hubbard Order Number: [id number] Diana MD: Jose Hubbard M.D. Interpretive Statements NAME OF STUDY: LEXISCAN SESTAMIBI STRESS TEST INDICATION: CHF/AFIB, PROCEDURE: At the baseline, the EKG revealed normal sinus rhythm with a right bundle branch block pattern. Features of old anteroseptal myocardial infarction. The baseline heart was 83 bpm with a blood pressue of 161/70 mm of Hg Lexiscan was infused over a period of 20 seconds. A total of 0.4 milligrams of Lexiscan was infused. The stress phase was continued for a total of 5 minutes. Heart rate at the end of the stress phase was 81 bpm with a blood pressure 118/77 mm of Hg. The EKG at the peak infusion revealed no significant changes. Sestamibi was injected 20 seconds after the Lexiscan infusion. Heart rate at the end of the recovery phase was 93 bpm with a blood pressure of 113/74 mm of Hg. CONCLUSION: 1. No significant EKG changes with the LexiScan infusion 2. No LexiScan induced chest pain or cardiac arrhythmia 3. Normal blood pressure and heart rate response 4. Sestamibi/sestamibi perfusion scan pending; see separate report. Electronically Signed On 04-30-2023 20:10:13 CDT by Jose Hubbard M.D. [id number]
[2023-04-26 10:56] VITALS: BMI 25.5
--- NOTE | 2023-04-26 10:56 | NMCV_ITS ---
NM cali perf SPECT r/s* [id number] Lucian Mcbride Age: 72 Gender: M : 1950 Exam Date: 04/26/2023 11:05 Ordering Phys: Jose Hbubard MD ([email or web address]) Technologist: SILVA Ohara Exam Location: [facility] Indications: CORONARY ANGIOPLASTY STATUS STRESS TEST [facility] IMAGE PROTOCOL Rest/Stress 1 Lexiscan Day Radiopharmaceutical Dose (mCi) Administration Site Administered by Rest: Tc-99m 11.0 IV SILVA Chaney Sestamibi Stress:Tc-99m 32.9 IV SILVA Chaney Sestamibi Rest: 26-Apr-2023 60 Discovery 630 Stress: 26-Apr-2023 30 Discovery 630 0.4mg Lexiscan. Supine position only as patient was unable to lay prone. SPECT RESULTS Technical Quality: Excellent Raw Data Analysis: Normal Image Corrections: No attenuation or motion correction applied Summed Stress Score: 17 Summed Rest Score: 16 Summed Difference Score: 1 PERFUSION FINDINGS Moderate area of moderate to severely decreased tracer uptake involving the mid anterior and all the apical segments. Slight reversibility was noted in the apical lateral segment. Increased tracer uptake was noted in the right ventricular free wall FUNCTIONAL RESULTS (calculated via Gated SPECT) Stress Image LV EF (%): 32 Stress EDV (mL):248 TID: 1.18 Stress ESV (mL):168 FUNCTIONAL FINDINGS: Segmental wall motion analysis revealed diffuse hypokinesia of the left ventricle. The transient ischemic dilatation ratio was slightly elevated to 1.18 IMPRESSIONS 1. Myocardial perfusion imaging revealing moderate area of moderate to severely decreased persistent tracer uptake in the mid anterior and all the apical segments with a very small area of reversible defect suggesting myocardial scarring in the distribution of all the 3 coronary arteries with a very small area of tana-infarction ischemia. Slightly elevated transischemic dilatation ratio may suggest endocardial ischemia 2. Moderately diminished LV ejection fraction of 32% 3. LV wall motion analysis revealed diffuse hypokinesia of the left ventricular 4. Moderately dilated LV cavity with an end-systolic volume of 168 ml. 5. Some features of right ventricular hypertrophy. No similar previous studies are available for comparison Dr Jose Hubbard MD FAC (Electronically Signed) Final Date: 26 April 2023 13:35 S
[2023-04-26] MEDS: regadenoson 0.4 Mg/5 ml Syringe 0.400000000000000022 MG IVP (11:40)
[2023-04-26 12:06] VITALS: BP 113/74; PULSE 88
--- NOTE | 2023-04-26 13:45 | USCV_ITS ---
Lucian Mcbride Age: 72 Gender: M : 1950 Exam Date: 04/26/2023 10:35 Ordering Phys: Jose Hubbard MD ([email or web address]) Technologist: Exam Location: [facility] [place] Indication: chf BP: 130 / 75 HR: 68 Rhythm: Sinus Technical Quality: Adequate MEASUREMENTS (Male / Female) Normal Values 2D ECHO LV Diastolic Diameter PLAX 5.7 cm 4.2 - 5.9 / 3.9 - 5.3 cm IVS Diastolic Thickness 1.4 cm 0.6 - 1.0 / 0.6 - 0.9 cm IVS Systolic Thickness 1.8 cm LVPW Diastolic Thickness 1.4 cm 0.6 - 1.0 / 0.6 - 0.9 cm LVPW Systolic Thickness 1.4 cm LVOT Diameter 2.1 cm LV Ejection Fraction 2D Teich 62.7 % LV Ejection Fraction MOD 2C 57.2 % LV Ejection Fraction 2C AL 55.1 % LA Diameter 5.0 cm RA Systolic Volume 4C AL 40.5 ml RA Systolic Volume 4C MOD 41.1 ml Aorta at Sinotubular Diameter 2.9 cm IVC Diameter 1.8 cm M-MODE LA Ao Ratio MM 1.6 AV Cusp Separation MM 1.8 cm DOPPLER LVOT Peak Velocity 88.0 cm/s AV Area Cont Eq vti 2.4 cm squared AV Area Cont Eq pk 2.8 cm squared MV Peak Velocity 118.0 cm/s MV Area PHT 3.5 cm squared Mitral E to A Ratio 37.7 TR Peak Velocity 205.5 cm/s TR Peak Gradient 16.9 mmHg TR Mean Velocity 158.0 cm/s TR Mean Gradient 11.6 mmHg TR Velocity Time Integral 65.4 cm TV Peak E Velocity 90.0 cm/s Right Atrial Pressure 3.0 mmHg Pulmonary Artery Systolic Pressu 19.9 mmHg PV Peak Velocity 104.0 cm/s FINDINGS Left Ventricle Mild left ventricular hypertrophy. Diffuse hypokinesia of the left ventricule with an LV ejection fraction of around 45% (visual) Right Ventricle The right ventricle is normal in size and function. Right Atrium Mildly increased right atrial size. Left Atrium Moderately increased left atrial size. Mitral Valve Moderate mitral valve regurgitation. Aortic Valve Thickened aortic valve. Tricuspid Valve Ebam-hk-yvriynof tricuspid valve regurgitation. Estimated pulmonary artery peak systolic pressure 21 mmHg Pulmonic Valve No gross abnormalities noted Pericardium No pericardial effusion. Aorta Normal aortic annulus size. IVC Normal inferior vena cava. CONCLUSIONS Mild left ventricular hypertrophy. Diffuse hypokinesia of the left ventricule with an LV ejection fraction of around 45% (visual). Moderately increased left atrial size. Mildly increased right atrial size. Moderate mitral valve regurgitation. [id number]-adpykffd tricuspid valve regurgitation. Estimated pulmonary artery peak systolic pressure 21 mmHg. Thickened aortic valve. There is no pericardial effusion. There are no intracardiac masses. No similar previous studies are available for comparison Dr Jose Hubbard MD [facility] (Electronically Signed) Final Date: 04 May 2023 17:57 S
== END 2023-04-26 10:03 | disposition home or self-care (01) ==
PROVIDERS: Visit Provider Internal Medicine Cardiovascular Disease
DX: R06.09 Other forms of dyspnea (principal); Z98.61 Coronary angioplasty status; I08.3 Combined rheumatic disorders of mitral, aortic and tricuspid valves
CPT/HCPCS: 36415; 78452; 93017; 93306; 96374; A9500; J2785

== ENCOUNTER → 2023-05-17 15:12 | Outpatient (BNVA) | payer MEDICARE, MEDICAID, SELFPAY | PROVIDERS: Visit Provider Internal Medicine Cardiovascular Disease | DX: R06.02 Shortness of breath (principal); Z79.899 Other long term (current) drug therapy; I10 Essential (primary) hypertension | CPT/HCPCS: 80048; 83880; 99214 ==

== ENCOUNTER → 2023-11-16 10:48 | Outpatient (BNVA) | payer MEDICARE, MEDICAID, SELFPAY | PROVIDERS: Visit Provider Nurse Practitioner Family | DX: I11.0 Hypertensive heart disease with heart failure (principal); I50.22 Chronic systolic (congestive) heart failure; I48.19 Other persistent atrial fibrillation; Z79.01 Long term (current) use of anticoagulants; F17.290 Nicotine dependence, other tobacco product, uncomplicated | CPT/HCPCS: 99214 ==

== ENCOUNTER 2024-01-15 17:39 | Inpatient (IN) | payer MEDICARE, MEDICAID, SELFPAY ==
--- NOTE | 2024-01-15 17:41 | XRR_ITS ---
PROCEDURE INFORMATION: Exam: XR Chest Exam date and time: 01/15/2024 5:59 PM Age: 73 years old Clinical indication: Shortness of breath; Additional info: SOB TECHNIQUE: Imaging protocol: Radiologic exam of the chest. Views: 1 view. COMPARISON: CR XR chest 1V portable [id number] 02/29/2020 10:45 AM FINDINGS: Tubes, catheters and devices: None. Lungs: Left-sided pulmonary linear interstitial opacities identified within lower lung. Improvement of bilateral lung opacities is demonstrated. The lungs appear otherwise clear. Pleural spaces: Small volume of pleural fluid is demonstrated within the left side. Heart/Mediastinum: Cardiac silhouette appears mildly enlarged. Vasculature: Moderate atherosclerotic calcification demonstrated within the aorta. Bones/joints: Diffusely decreased bone density. Generalized bony degenerative changes. Other findings: Limited evaluation with patient rotation. XR/XR chest 1V portable [id number] IMPRESSION: 1. Mild enlarged cardiac silhouette. 2. Pulmonary atelectasis or acute infiltrates within left lower chest. 3. Small left pleural effusion.
[2024-01-15 17:43] VITALS: PULSE 113; RESP 17; TEMP 36.5; O2SAT 98; BMI 25.7
--- NOTE | 2024-01-15 17:46 | ECG_ITS ---
[facility] Test Date: 2024-01-15 Pat Name: Lucian Mcbride Department: Room: Gender: Male Life Skills Instructor: : 1950 Requested By: Jg Funez Order Number: [id number] Diana MD: Jose Hubbard M.D. Measurements Intervals [place] Rate: 148 P: 0 WA: 0 QRS: -22 QRSD: 149 T: 78 QT: 331 QTc: 520 Interpretive Statements ATRIAL FIBRILLATION WITH RAPID VENTRICULAR RESPONSE WITH ABERRANT CONDUCTION OR VENTRICULAR PREMATURE COMPLEXES RIGHT BUNDLE BRANCH BLOCK [120+ ms QRS DURATION, UPRIGHT V1, 40+ ms S IN I/aVL/V4/V5/V6] ANTERIOR MYOCARDIAL INFARCTION , OF INDETERMINATE AGE [40+ ms Q WAVE AND/OR ST/T ABNORMALITY IN V3/V4] Compared to ECG 02/29/2020 12:45:17 Ventricular premature complex(es) now present Aberrant conduction of supraventricular beat(s) now present Myocardial infarct finding now present Sinus rhythm no longer present Electronically Signed On 01-17-2024 01:03:26 DISCHARGE DOOR OPERATOR by Jose Hubbard M.D. [email or web address]
--- NOTE | 2024-01-15 18:06 | ED_ITS ---
HPI - Chest Pain 2 General: Chief Complaint: Chest Pain Stated Complaint: conjestive heart failure Time Seen by Provider: 01/15/24 17:52 Source: patient Mode of arrival: ambulatory Limitations: no limitations History of Present Illness: 73-year-old male states that he has been having chest pain for over a year. He states it is worsened he states he is sick and dealing with the chronic pain. Has a history of congestive heart failure along with A-fib and cardiomyopathy. States pains been sharp in nature rates it a 6 out of 10 he is in A-fib with RVR here with some hypotension he denies any fever denies any vomiting. He states he is taken multiple nitros today due to the pain Associated symptoms: Deny abdominal pain, dyspnea, fever(s), nausea or vomiting Related Data Home Medications Medication Instructions Recorded Confirmed naproxen 375 mg tablet 375 mg PO BID PRN 06/01/21 11/16/23 alprazolam 0.25 mg tablet 0.125 mg PO TID 04/04/23 11/16/23 apixaban 5 mg tablet (Eliquis) 5 mg PO BID 04/04/23 11/16/23 bumetanide 1 mg tablet 1 mg PO DAILY 04/04/23 11/16/23 diltiazem HCl 120 mg tablet 120 mg PO DAILY 04/04/23 11/16/23 (Cardizem) isosorbide dinitrate 30 mg tablet 30 mg PO BID 04/04/23 11/16/23 potassium chloride 10 mEq 10 meq PO DAILY 04/04/23 11/16/23 tablet,extended release (Klor-Con) sacubitril 24 mg-valsartan 26 mg 1 tab PO BID 04/04/23 11/16/23 tablet (Entresto) Previous Rx's Medication Instructions Recorded esomeprazole magnesium 40 mg 40 mg PO DAILY #90 caps 06/01/21 capsule,delayed release (Nexium) amlodipine 10 mg tablet See Rx Instructions .Route 06/20/22 .COMPLEX #30 tabs nitroglycerin 0.4 mg sublingual 0.4 mg sublingual Q5M PRN chest 01/01/24 tablet pain #30 tabs Allergies Allergy/AdvReac Type Severity Reaction Status Date / Time ranolazine Allergy Mild ADR-Dizzine Verified 11/16/23 11:10 ss hydrochlorothiazide Allergy Unknown Verified 12/14/23 13:43 triamterene Allergy Unknown Verified 12/14/23 13:43 codeine AdvReac Mild VOMIT Verified 11/16/23 11:10 Review of Systems 2 Const: Denies: fever(s), chills, body aches or change in appetite ENMT: Denies: throat pain or dental pain Card: Reports: chest pain Resp: Denies: dyspnea GI: Denies: abdominal pain, nausea, vomiting or diarrhea Musc: Denies: neck pain or back pain Skin/Breast: Denies: rash Neuro: Denies: headache(s) PFSH ED 2 PFSH: Medical History Bipolar 2 disorder Essential hypertension History of kidney stones Surgical History H/O lithotripsy History of right knee surgery Social History Smoking and tobacco/nicotine status: former use of tobacco/nicotine (about a month ago) Alcohol intake: former Substance/Drug Use: current Substance/Drug use frequency: daily Physical Exam 2 Const: COMMON NORMALS: patient oriented x3 GENERAL APPEARANCE: ill appearing HENMT: COMMON NORMALS: normocephalic and atraumatic HEAD & SCALP: n ormocephalic and atraumatic Eye: COMMON NORMALS: Equal, round and reactive pupils present and EOMs intact bilaterally PUPIL: Yes Equal, round and reactive pupils present Neck/C-Spine: COMMON NORMALS: full ROM and supple Chest: COMMONS NORMALS: normal inspection of the chest Resp: COMMON NORMALS: normal respiratory effort, No retractions, No use of accessory muscles and clear to auscultation bilaterally AUSCULTATION: clear to auscultation bilaterally Cardio: COMMON NORMALS: No murmurs present (Cardio) RATE: tachycardic R HYTHM: abnormal rhythm irregularly irregular GI: COMMON NORMALS: Normal to inspection, nondistended, normoactive bowel sounds present, Soft to palpation, non-tender and no masses PALPATION: Yes Soft to palpation Extremity: COMMON NORMALS: normal to inspection and full ROM Neuro: COMMON NORMALS: patient oriented x3, moves all extremities and no focal motor deficits Psych: COMMON NORMALS: mental status grossly normal, Normal thought process present and cooperative THOUGHT PROCESS: Normal thought process present Skin: COMMON NORMALS: no rashes or lesions noted and no wounds GENERAL SKIN EXAM: no rashes or lesions noted Course 2 Vital Signs: Vital signs: Vital Signs Temperature 97.7 F 01/15/24 17:43 Pulse Rate 136 H 01/15/24 21:22 Respiratory Rate 16 01/15/24 20:05 Blood Pressure 109/76 01/15/24 21:22 Pulse Oximetry 97 01/15/24 21:22 Oxygen Delivery Me thod Room Air 01/15/24 17:43 MDM - Chest Pain Medical Decision Making Patient presents here with a chest pain he is in A-fib with RVR is hypotensive well does have an elevated lactate blood pressure here improved with IV fluids his heart rate improved with amiodarone did give Lovenox also antibiotics is likely a cardiogenic shock causing his elevated lactate no fever. Spoke to the hospitalist will admit to ICU Medical Records I reviewed the patient's medical records. Lab Data I reviewed the patient's lab results. 01/15/24 18:03 01/15/24 18:03 Radiology Impressions Chest X-Ray 01/15/24 17:41 IMPRESSION: 1. Mild enlarged cardiac silhouette. 2. Pulmonary atelectasis or acute infiltrates within left lower chest. 3. Small left pleural effusion. Laboratory Results WBC 9.06 10^3/uL (3.29-11.43) 01/15/24 18:03 RBC 4.42 10^6/uL (3.85-5.65) 01/15/24 18:03 Hgb 9.00 g/dL (11.27-16.99) L 01/15/24 18:03 Hct 31.1 % (37-53) L 01/15/24 18:03 MCV 70.4 fl (82-101) L 01/15/24 18:03 MCH 20.4 pg (27-33) L 01/15/24 18:03 MCHC 28.9 g/dL (30-55) L 01/15/24 18:03 RDW 20.4 % (12.1-15.1) H 01/15/24 18:03 Plt Count 339 10^3/cmm (157-399) 01/15/24 18:03 MPV 11.2 fL (7.4-10.4) H 01/15/24 18:03 Neut % (Auto) 64.1 % 01/15/24 18:03 Lymph % (Auto) 24.4 % 01/15/24 18:03 [place] % (Auto) 10.4 % 01/15/24 18:03 Eos % (Auto) 0.1 % 01/15/24 18:03 Baso % (Auto) 0.7 % 01/15/24 18:03 Neut # (Auto) 5.81 10^3/uL (1.8-7.7) 01/15/24 18:03 Lymph # (Auto) 2.2 10^3/uL (0.8-4.8) 01/15/24 18:03 [place] # (Auto) 0.9 10^3/uL (0.2-0.9) 01/15/24 18:03 Eos # (Auto) 0.0 10^3/uL (0.0-0.8) 01/15/24 18:03 Baso # (Auto) 0.1 10^3/uL (0.0-0.1) 01/15/24 18:03 Nucleated RBC % (auto) 0 % 01/15/24 18:03 Nucleated RBCs # 0.0 /100WBC 01/15/24 18:03 Sodium 133 mmol/L (136-145) L 01/15/24 18:03 Potassium 3.8 mmol/L (3.5-5.1) 01/15/24 18:03 Chloride 91 mmol/L (98-107) L 01/15/24 18:03 Carbon Dioxide 23 mmol/L (22-29) 01/15/24 18:03 Anion Gap 22.8 (5-19) H 01/15/24 18:03 BUN 11 mg/dL (8-23) 01/15/24 18:03 Creatinine 1.1 mg/dL (0.7-1.2) 01/15/24 18:03 GFR Calculation Not Reportable 01/15/24 18:03 Glucose 103 mg/dL (65-115) 01/15/24 18:03 Calculated Osmolality 276 mOsm/kg (285-295) L 01/15/24 18:03 Lactic Acid 8.1 mmol/L (0.5-2.2) H* 01/15/24 18:03 Calcium 8.6 mg/dL (8.5-10.5) 01/15/24 18:03 Total Bilirubin 1.0 mg/dL (0.15-1.2) 01/15/24 18:03 AST 33 U/L (0-40) 01/15/24 18:03 ALT 13 U/L (0-41) 01/15/24 18:03 Alkaline Phosphatase 308 U/L (40-130) H 01/15/24 18:03 Troponin T Baseline 77 ng/L (0-15) H 01/15/24 18:03 NT-Pro-B Natriuret Pep 3335 pg/mL (0-125) H 01/15/24 18:03 Total Protein 6.3 g/dL (6.6-8.7) L 01/15/24 18:03 Albumin 3.5 g/dL (3.5-5.2) 01/15/24 18:03 Globulin 2.8 g/dL (1.3-4.6) 01/15/24 18:03 Procalcitonin 0.27 ng/mL (0-0.5) 01/15/24 18:03 All radiology interpretation(s) finalized by discharge EKG Data EKG 1: I personally reviewed and interpreted this EKG as follows: EKG interpretation date: 01/15/24 EKG interpretation time: 17:46 Interpretation: afib with rvr hr [address] elevation qrs 149 qtc 416 Critical Care Time 2 Critical Care Time: Critical Care Time: Yes Total Critical Care Time: 55 Attestation: The high probability of a clinically significant, sudden or life threatening deterioration of the patient's cv system(s) required my full and direct attention, intervention and personal management. The critical care time is as shown. This time is in addition to time spent performing any reported procedures but includes the following: [x] Data and vital sign review and interpretation [x] Patient assessment, examination and intervention [x] Documentation [x] Medication orders and management Discharge Plan Discharge Patient Disposition: Admitted As Inpatient Admit Provider: Sharita Guevara Clinical Impression: Chest pain, Atrial fibrillation with RVR, Hypotension, Elevated lactic acid level Condition: Stable Coding Level of Care Code ED Quality Control Specialist for [facility]
[2024-01-15] MEDS: sodium chloride 0.9% 1,000 ML 999 ML IV ×2 (18:08→20:00)
[2024-01-15] MEDS: amiodarone 50 mg/mL SDV 3 mL 150 MG IVP (18:09)
[2024-01-15] MEDS: aspirin 81 mg Chew Tablet 324 MG PO (18:12)
[2024-01-15] MEDS: ondansetron 2 mg/ML SDV 2 mL 4 MG IVP (18:13)
[2024-01-15 18:14] VITALS: RESP 18
[2024-01-15 18:14] LABS: Basophils # 0.1 10^3/uL (0.0-0.1); Basophils % 0.7 %; Eosinophils % 0.1 %; Hematocrit 31.1 % (37-53); Lymphocytes # 2.2 10^3/uL (0.8-4.8); Lymphocytes % 24.4 %; Mean Corpuscular HGB Conc 28.9 g/dL (30-55); Mean Corpuscular Hemoglobin 20.4 pg (27-33); Mean Corpuscular Volume 70.4 fl (82-101); Mean Platelet Volume 11.2 fL (7.4-10.4); Monocytes # 0.9 10^3/uL (0.2-0.9); Monocytes % 10.4 %; Neutrophils # 5.81 10^3/uL (1.8-7.7); Neutrophils % 64.1 %; Nucleated Red Blood Cells % 0 %; Platelet Count 339 10^3/cmm (157-399); Red Blood Count 4.42 10^6/uL (3.85-5.65); Red Cell Distribution Width 20.4 % (12.1-15.1); White Blood Count 9.06 10^3/uL (3.29-11.43)
[2024-01-15] MEDS: HYDROmorphone 1 mg/mL INJ 1 mL 0.5 MG IVP (18:14)
[2024-01-15 18:43] LABS: Troponin(5th) Baseline 77 ng/L (0-15)
[2024-01-15 18:51] LABS: Alanine Aminotransferase 13 U/L (0-41); Albumin Level 3.5 g/dL (3.5-5.2); Alkaline Phosphatase 308 U/L (40-130); Anion Gap 22.8 (5-19); Aspartate Amino Transferase 33 U/L (0-40); Blood Urea Nitrogen 11 mg/dL (8-23); Calcium 8.6 mg/dL (8.5-10.5); Carbon Dioxide 23 mmol/L (22-29); Chloride 91 mmol/L (98-107); Creatinine Clr Calc Pharmacy 66.6159; Globulin 2.8 g/dL (1.3-4.6); Glucose 103 mg/dL (65-115); NT Pro B Type Natriuretic Pept 3335 pg/mL (0-125); Osmolality Calculated 276 mOsm/kg (285-295); Potassium 3.8 mmol/L (3.5-5.1); Sodium 133 mmol/L (136-145); Total Protein 6.3 g/dL (6.6-8.7)
[2024-01-15 18:57] LABS: Lactic Sepsis W/Reflex 8.1 mmol/L (0.5-2.2)
[2024-01-15 19:35] LABS: Procalcitonin 0.27 ng/mL (0-0.5)
[2024-01-15] MEDS: enoxaparin 80 mg/0.8 mL Syringe SUBCUT (19:54)
[2024-01-15] MEDS: piperacillin-tazobactam 3.375 GM in sodium chloride 0.9% (plus) 50 ML IV (19:55)
--- NOTE | 2024-01-15 19:58 | ECG_ITS ---
[employer] Test Date: 2024-01-15 Pat Name: Lucian Mcbride Department: Room: [facility] Gender: Male Assistant Store Manager Operations: : 1950 Requested By: Jg Funez Order Number: [id number] Diana MD: Jose Hubbard M.D. Measurements Intervals [place] Rate: 119 P: 0 MI: 0 QRS: -17 QRSD: 139 T: 49 QT: 368 QTc: 518 Interpretive Statements ATRIAL FIBRILLATION WITH RAPID VENTRICULAR RESPONSE INTRAVENTRICULAR CONDUCTION DELAY [130+ ms QRS DURATION] ANTEROSEPTAL MYOCARDIAL INFARCTION , OF INDETERMINATE AGE [40+ ms Q WAVE IN V1-V4] Compared to ECG 01/15/2024 17:46:00 Intraventricular conduction delay now present Ventricular premature complex(es) no longer present Aberrant conduction of supraventricular beat(s) no longer present Right bundle-branch block no longer present Myocardial infarct finding still present Electronically Signed On 01-17-2024 01:09:53 CREATIVE DESIGNER by Jose Hubbard M.D. [id number]
[2024-01-15 20:01] LABS: Reflex Lactate Order REFLEX LACTIC ORDERD
[2024-01-15] MEDS: ALPRAZolam 0.5 mg Tablet PO ×2 (20:03→23:32)
[2024-01-15 20:05] VITALS: RESP 16; O2SAT 99
[2024-01-15] MEDS: morphine 4 mg/mL SDV 1 mL IVP (20:05)
--- NOTE | 2024-01-15 20:27 | PC.NURSE ---
Pt made several comments to this nurse about being better off . PSA at door.
[2024-01-15] MEDS: VANCOMYCIN ADD-Vantage 1,000 MG in 0.9% NaCl ADD-Vantage 250 ML 250 MG IV (20:32)
--- NOTE | 2024-01-15 21:14 | PM.HP ---
Providers/Chief Complaint Admitting Physician: Sharita Guevara MD Chief Complaint: conjestive heart failure History of Present Illness Lucian Mcbride is a 73 year old male with history of hypertension, cardiomyopathy, positive stress test slightly elevated transischemic dilatation ratio with subendocardial ischemia April 2023 has seen cardiology, presented with worsening of chest pain. Patient is stating that he is normally very anxious, suffered through survival guilt because of his war experience, he does not trust most of the men, he thinks Dr. Hubbard has vendetta against him, previous echo showed EF of 45%, when I went in to see the patient patient was arguing with me and the staff that how doctors and nurses are 1 unit and would not listen to him when he needs medications to control his pain. Patient is making statements such as he wants to end his life because he is sick of staying in pain. At the time of my evaluation he is saying that chest pain is getting better after getting p.o. morphine, in the ER he was put on amiodarone drip for A-fib RVR, he was hypotensive systolic blood pressure was low 80s, high lactic acid. Patient has multiple antihypertensive regimen. Patient is stating that he has quit smoking few months ago. He lives alone. He does not drive. Review of Systems Const: Denies: fever(s) Eyes: Denies: change in vision ENMT: Denies: throat pain Card: Reports: chest pain Resp: Denies: dyspnea GI: Denies: abdominal pain : Denies: flank pain Musc: Reports: back pain and extremity pain Skin/Breast: Denies: rash Medications/Allergies Home Medications Medication Instructions Recorded Confirmed Last Taken Type esomeprazole magnesium 40 mg 40 mg PO DAILY #90 caps 06/01/21 11/16/23 Unknown Rx capsule,delayed release (Nexium) naproxen 375 mg tablet 375 mg PO BID PRN 06/01/21 11/16/23 Unknown History amlodipine 10 mg tablet See Rx Instructions .Route 06/20/22 11/16/23 Unknown Rx .COMPLEX #30 tabs alprazolam 0.25 mg tablet 0.125 mg PO TID 04/04/23 11/16/23 Unknown History apixaban 5 mg tablet (Eliquis) 5 mg PO BID 04/04/23 11/16/23 Unknown History bumetanide 1 mg tablet 1 mg PO DAILY 04/04/23 11/16/23 Unknown History diltiazem HCl 120 mg tablet 120 mg PO DAILY 04/04/23 11/16/23 Unknown History (Cardizem) isosorbide dinitrate 30 mg tablet 30 mg PO BID 04/04/23 11/16/23 Unknown History potassium chloride 10 mEq 10 meq PO DAILY 04/04/23 11/16/23 Unknown History tablet,extended release (Klor-Con) sacubitril 24 mg-valsartan 26 mg 1 tab PO BID 04/04/23 11/16/23 Unknown History tablet (Entresto) nitroglycerin 0.4 mg sublingual 0.4 mg sublingual Q5M PRN chest 01/01/24 Unknown Rx tablet pain #30 tabs Allergies Allergy/AdvReac Type Severity Reaction Status Date / Time ranolazine Allergy Mild ADR-Dizzine Verified 11/16/23 11:10 ss hydrochlorothiazide Allergy Unknown Verified 12/14/23 13:43 triamterene Allergy Unknown Verified 12/14/23 13:43 codeine AdvReac Mild VOMIT Verified 11/16/23 11:10 PFSH Acute PFSH: Medical History Bipolar 2 disorder Essential hypertension History of kidney stones Surgical History H/O lithotripsy History of right knee surgery Social History Smoking and tobacco/nicotine status: former use of tobacco/nicotine (about a month ago) Alcohol intake: former Substance/Drug Use: current Substance/Drug use frequency: daily Vitals/I&O/Wt Last Vital Signs Temp 97.7 F 01/15/24 17:43 Pulse 113 H 01/15/24 17:43 Resp 16 01/15/24 20:05 Pulse Ox 99 01/15/24 20:05 O2 Del Method Room Air 01/15/24 17:43 01/15/24 01/15/24 01/15/24 06:59 14:59 22:59 Intake Total 1050 / 1050 Balance 1050 / 1050 Weight last 48 hrs Weight 83.915 kg Physical Exam Narrative: Patient is awake and alert Very anxious appearing A-fib RVR Blood pressure 109/76 mmHg No active chest pain Euvolemic Anxious appearing Currently on room air On amiodarone drip Nonfocal neuroexam Data 01/15/24 18:03 01/15/24 18:03 Micro: Microbiology 01/15/24 19:45 Blood Culture - Preliminary Blood SPECIMEN COLLECTED 01/15/24 19:41 Blood Culture - Preliminary Blood SPECIMEN COLLECTED A&P Assessment and plan (1) Bipolar 2 disorder: (2) Essential hypertension: (3) Chronic systolic (congestive) heart failure: (4) Hypotension: (5) Congestive heart failure: Qualifiers: Heart failure type: unspecified Heart failure chronicity: acute Qualified Code(s): I50.9 - Heart failure, unspecified (6) Cardiomyopathy: Qualifiers: Cardiomyopathy type: other Qualified Code(s): I42.8 - Other cardiomyopathies (7) Atrial fibrillation with RVR: (8) Chronic low back pain: Qualifiers: Back pain laterality: bilateral Sciatica presence: without sciatica Qualified Code(s): M54.50 - Low back pain, unspecified; G89.29 - Other chronic pain (9) Elevated lactic acid level: Plan Unstable angina Patient may benefit from an angiogram, consulted Dr. Hubbard I will put patient on therapeutic Lovenox discontinue Eliquis I will give him a loading dose of Plavix, start him on therapeutic Lovenox continue aspirin Dr. Hubbard notified and consulted I have convinced patient to speak with Dr. Hubbard first in the morning and if he wants second opinion he may ask Dr. Hubbard to arrange another sole stainer Patient thinks Dr. Hubbard has vendetta against him , he has seen him outpatient and requested a different sole stainer For now agreeable to speak with Dr. Hubbard first in the morning before requesting another sole stainer Currently chest pain-free On p.o. morphine Serial troponin and EKG Negative delta troponin Last echo showed diffuse hypokinesia of left ventricle EF 45% however patient is stating that he has terminal cardiomyopathy, patient is ambivalent towards the treatment plan A-fib RVR Currently on amiodarone drip On therapeutic Lovenox Hypotension related hypoperfusion causing high lactic acid This seems to be drug induced hypotension Patient does not seem to be in cardiogenic shock on clinical exam Clinically he looks euvolemic I will hold off on his amlodipine, Imdur, Entresto Full code Cardiac diet Check TSH, B12, Lives alone, Attestations Medical Necessity Statement*: More than 2 midnights anticipated Diagnoses Bipolar 2 disorder F31.81 Essential hypertension I10 Chronic systolic (congestive) heart failure I50.22 Hypotension I95.9 Acute congestive heart failure, unspecified heart failure type I50.9 Heart failure type: unspecified Heart failure chronicity: acute Other cardiomyopathy I42.8 Cardiomyopathy type: other Atrial fibrillation with RVR I48.91 Chronic bilateral low back pain without sciatica M54.50; G89.29 Back pain laterality: bilateral Sciatica presence: without sciatica Elevated lactic acid level R79.89
[2024-01-15 21:18] LABS: Troponin 5 2HR 66.03 ng/L (0-15)
[2024-01-15 21:19] LABS: Lactic Acid level (Lactate) 6.8 mmol/L (0.5-2.2); Troponin 5 2HR Delta -10.97 ABS# (0-10)
[2024-01-15 21:22] VITALS: BP 109/76; PULSE 136; O2SAT 97
--- NOTE | 2024-01-15 21:32 | PC.NURSE ---
Pt being transferred to ICU by JD EDWARDS. Upon entering unit, this RN behind pt, pt stated, take me to the morgue. I'm better off ! . Physician notified, dolores called to beside.
[2024-01-15 21:56] VITALS: BMI 27.2
[2024-01-15 22:00] VITALS: PULSE 116
[2024-01-15 22:01] VITALS: RESP 22; O2SAT 96
[2024-01-15] MEDS: morphine IR 15 mg Tablet PO (22:01)
--- NOTE | 2024-01-15 23:58 | ECG_ITS ---
[facility] Test Date: 2024-01-16 Pat Name: Lucian Mcbride Department: Room: [facility] Gender: Male Rn Acute: : 1950 Requested By: Jg Funez Order Number: [id number] Diana MD: Jose Hubbard M.D. Measurements Intervals [place] Rate: 100 P: 0 [place]: 0 QRS: -12 QRSD: 166 T: 46 QT: 449 QTc: 579 Interpretive Statements ATRIAL FIBRILLATION WITH RAPID VENTRICULAR RESPONSE INTRAVENTRICULAR CONDUCTION DELAY [130+ ms QRS DURATION] Compared to ECG 01/15/2024 21:44:56 Myocardial infarct finding no longer present Electronically Signed On 01-17-2024 01:09:55 SPUD DRILLER by Jose Hubbard M.D. [id number]
[2024-01-16] VITALS (28 sets, daily range): BP systolic 85–142; BP diastolic 48–105; PULSE 84–128; RESP 14–91; TEMP 36.2–36.4; O2SAT 95–100
--- NOTE | 2024-01-16 00:38 | PC.NURSE ---
96 HH Pt served with copy of 96 HH by this RN and security. Pt A&Ox3. Pt animated, manic and agitated. Poor concentration to conversation. Pt agreed to belongings being taken and searched by primary RN and security.
[2024-01-16 01:16] LABS: Troponin 5 6HR 64.32 ng/L (0-15)
[2024-01-16 01:18] LABS: Thyroid Stimulating Hormone 9.05 uIU/mL (0.27-4.20); Vitamin B12 1041 pg/mL (232-1245)
[2024-01-16 01:23] LABS: Troponin 5 6HR Delta -12.68 ng/L (0-12)
[2024-01-16] MEDS: levoFLOXacin 750 mg Tablet PO (06:23)
[2024-01-16] MEDS: ALPRAZolam 0.5 mg Tablet PO ×3 (06:23→21:16)
[2024-01-16 06:27] LABS: Add Urine Microscopic? NO
[2024-01-16 06:40] LABS: Basophils % 0.5 %; Eosinophils % 0.4 %; Hematocrit 27.8 % (37-53); Lymphocytes # 1.8 10^3/uL (0.8-4.8); Lymphocytes % 31.8 %; Mean Corpuscular HGB Conc 29.1 g/dL (30-55); Mean Corpuscular Hemoglobin 20.6 pg (27-33); Mean Corpuscular Volume 70.6 fl (82-101); Mean Platelet Volume 10.6 fL (7.4-10.4); Monocytes # 0.6 10^3/uL (0.2-0.9); Monocytes % 10.2 %; Neutrophils # 3.13 10^3/uL (1.8-7.7); Neutrophils % 56.7 %; Nucleated Red Blood Cells % 0 %; Platelet Count 230 10^3/cmm (157-399); Red Blood Count 3.94 10^6/uL (3.85-5.65); Red Cell Distribution Width 19.9 % (12.1-15.1); White Blood Count 5.51 10^3/uL (3.29-11.43)
--- NOTE | 2024-01-16 06:46 | PC.NURSE ---
Pt arrived to unit 01/15/24 at 2130 via stretcher from ED. Pt irritable, frequently stating he just wanted to end it , his condition was terminal and there was no reason to live . Stated he was aware of the kind of care he would receive by using that language . 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 Stated he has chest pain and the only thing that helps is Xanax and he could not get it refilled at the office he goes to would not refill without a physical visit and he refused to go. Dr. Guevara came to room for assessment and pt again voiced suicidal ideation and then was served with 96 hour hold, this nurse witnessed pt being read his rights. This nurse and security inventoried belongings, $209 in wallet placed in Pyxis, and other belongings as listed on inventory placed in locker #9 in unit. Later pt stated he would be agreeable with psychiatric treatment as long as it wasn't from a nigger and he wouldn't be accepting care from any other physicians other than white ones, he knows his rights . Pt then rested most of the evening, remained with sitter, no physical aggression, but remained verbally inappropriate.
[2024-01-16 06:56] LABS: Anion Gap 16.8 (5-19); Blood Urea Nitrogen 13 mg/dL (8-23); C Reactive Protein 45.2 mg/L (0.0-4.9); Calcium 8.2 mg/dL (8.5-10.5); Carbon Dioxide 26 mmol/L (22-29); Chloride 95 mmol/L (98-107); Creatinine Clr Calc Pharmacy 57.6661; Glucose 106 mg/dL (65-115); Magnesium 1.6 mg/dL (1.7-2.3); Osmolality Calculated 279 mOsm/kg (285-295); Potassium 3.8 mmol/L (3.5-5.1); Sodium 134 mmol/L (136-145)
[2024-01-16 07:05] LABS: Bilirubin Urine Negative (Negative); Blood Urine Negative (Negative); Glucose Urine UA Negative (Normal); Ketones Urine Negative (Negative); Leukocyte Esterase Urine Negative (Negative); Nitrate Urine Negative (Negative); Protein Urine Negative (Negative); Specific Gravity, Urine 1.012 (1.005-1.030); Urine Appearance Clear (CLEAR); Urine Color Yellow (Yellow); pH Urine 5.5 (5-7)
[2024-01-16 07:12] LABS: Amphetamines Screen Urine Negative (Negative); Barbiturates Screen Urine Negative (Negative); Benzodiazepines Screen Urine Positive (Negative); Cocaine Screen Urine Negative (Negative); Opiate Screen Urine Positive (Negative); PCP Screen Urine Negative (Negative); THC Screen Urine Positive (Negative)
--- NOTE | 2024-01-16 07:38 | USR_ITS ---
PROCEDURE INFORMATION: Exam: US Retroperitoneal, Complete, Kidneys and Bladder Exam date and time: 01/16/2024 7:54 AM Age: 73 years old Clinical indication: Abnormal findings; Abnormal radiologic finding of the abdomen; Radiologic exam and body structure: CT; Additional info: History of abnormal CT scan, renal mass TECHNIQUE: Imaging protocol: Real-time ultrasound of the retroperitoneum with image documentation. Complete exam focused on the bilateral kidneys and urinary bladder. COMPARISON: CT abdomen pelvis w con* [id number] 10/03/2020 5:52 PM FINDINGS: Right kidney: Multiple cysts of the right kidney are seen. Left kidney: Exophytic cysts of the left kidney is seen. Urinary bladder: Urinary bladder is unremarkable. US/US renal BI* [id number] IMPRESSION: Bilateral renal cysts are seen, consider cross-sectional imaging if there is further clinical necessity as this study was somewhat limited in assessment.
[2024-01-16 07:55] LABS: Charge for UA Resulting for Rev
[2024-01-16] MEDS: magnesium sulfate premix 2 GM/50 ML PIGGYBACK IV (07:59)
[2024-01-16] MEDS: pantoprazole 40 mg SDV IVP ×2 (08:02→21:15)
[2024-01-16] MEDS: FUROsemide 20 mg Tablet PO (08:05)
[2024-01-16] MEDS: sennosides-docusate Tablet 1 TAB PO (08:05)
[2024-01-16] MEDS: aspirin 81 mg EC Tablet PO (08:05)
[2024-01-16] MEDS: enoxaparin 80 mg/0.8 mL Syringe SUBCUT ×2 (08:05→21:57)
[2024-01-16] MEDS: potassium chloride ER 20 mEq Tablet PO (08:05)
[2024-01-16 08:06] LABS: Ferritin 45 ng/mL (30-400); Iron 13 ug/dL (59-158); Percent Saturation 5.2 % (20-50); Total Iron Binding Capacity 246 mcg/dl; Unsaturated Iron Binding 233 ug/dL (112-347)
--- NOTE | 2024-01-16 08:35 | P.PN_ITS ---
Subjective 2 Subjective: History and physical was reviewed.Patient admitted for pneumonia, congestive heart failure, question of unstable angina. He reports he has a little bit of chest discomfort this morning. Medications: Reviewed: Yes Vitals/I&O/Wt Last Vital Signs Temp 97.7 F 01/15/24 17:43 Pulse 100 01/16/24 06:00 Resp 22 H 01/15/24 22:01 BP 109/76 01/15/24 21:22 Pulse Ox 96 01/15/24 22:01 O2 Del Method Room Air 01/15/24 17:43 01/15/24 01/16/24 01/16/24 22:59 06:59 14:59 Intake Total 1050 / 1050 189.425 / 7384.702 1764 / 1250 Balance 1050 / 1050 189.425 / 1784.274 9632 / 1250 Weight last 48 hrs Weight 88.451 kg Weight 88.5 kg Weight 83.915 kg Physical Exam 2 Narrative: General exam is a white male, no distress, disturbed that I am disturbing him. Neck is supple no lymphadenopathy or megaly Cardiovascular irregular, irregular without murmur Lungs clear Abdomen is soft nontender Extremities no cyanosis clubbing or edema Data 01/16/24 06:09 01/16/24 06:09 Micro: Microbiology 01/15/24 19:45 Blood Culture - Preliminary Blood SPECIMEN COLLECTED 01/15/24 19:41 Blood Culture - Preliminary Blood SPECIMEN COLLECTED A&P Assessment and plan (1) Atrial fibrillation with RVR: Patient presents with A-fib with RVR Amiodarone drip started Cardiology consult Limited echo. TSH checked and slightly elevated. Recommend recheck in 6 weeks Magnesium low, and supplemented (2) Chest pain: Patient with chest pain for quite a while In April he had a nuclear medicine scan showing a small reversible defect, elevated 3 times daily ratio, and EF of 32% Aspirin Statin Hold isosorbide currently. Blood pressure somewhat low Qualifiers: Chest pain type: other chest pain Qualified Code(s): R07.89 - Other chest pain (3) Cardiomyopathy: Echo in April demonstrated an EF of 45%, moderate MR, moderate TR Hold Entresto currently until cardiology evaluates Qualifiers: Cardiomyopathy type: other Qualified Code(s): I42.8 - Other cardiomyopathies (4) Congestive heart failure: Qualifiers: Heart failure type: unspecified Heart failure chronicity: acute Qualified Code(s): I50.9 - Heart failure, unspecified (5) Anemia: Significant anemia Iron studies done this morning demonstrate significant iron deficiency anemia Transfuse 1 unit of packed red blood cells secondary to ongoing chest pain with questionable coronary disease Fecal Hemoccult Protonix IV every 12 hours Check hemoglobin following transfusion Repeat laboratory tomorrow (6) Pneumonia: Questionable pneumonia. Continuing Levaquin for 3 more days Plan History of ill-defined renal mass on CT previous. I have ordered an ultrasound which shows just cysts. Suicidal ideation, based on thoughts he is expressed to nursing as well as myself that he occasionally thinks of just ending at all. Psychiatry will evaluate. A 96-hour hold was placed last night. Multiple other medical problems as outlined in past medical history Lovenox will suffice for DVT prophylaxis. Currently full code. Attestations 2 Medical Necessity Statement*: Needs continued hospital stay, for transfusion secondary dose significant anemia, elevated troponin with cardiology evaluation Diagnoses Atrial fibrillation with RVR I48.91 Other chest pain R07.89 Chest pain type: other chest pain Other cardiomyopathy I42.8 Cardiomyopathy type: other Acute congestive heart failure, unspecified heart failure type I50.9 Heart failure type: unspecified Heart failure chronicity: acute Anemia D64.9 Pneumonia J18.9 Time Spent (min) 33
[2024-01-16] MEDS: ondansetron 2 mg/ML SDV 2 mL 4 MG IVP (08:52)
--- NOTE | 2024-01-16 09:01 | PC.NURSE ---
Patient very rude and non complaint with staff. Multiple attempts to administer medication and draw labs via metal fabricator helper. Patient very rude and agitated towards staff. When staff would do one task at a time, and verbally redirect patient that staff is just trying to help patient is more compliant. Patient stated he was entitled to be grumpy . Patient continues to have negative thoughts such as maybe if I don't eat, I'll drop over . Staff told patient, we wouldn't want that, patient responded I would . Patient redirected and 1:1 sitter with patient.
--- NOTE | 2024-01-16 12:24 | PC.NURSE ---
Patients blood is ready per blood blank, nurse asked patient if he was ready to receive his ordered blood transfusion, patient stated I've only had 3 hours of sleep, I'm unable to make these decisions right now.
--- NOTE | 2024-01-16 12:25 | PC.NURSE ---
Nutrition rounded to ask what patient would like for lunch and patient told nutrition staff to get the fuck out of his room Then patient refused lunch because it wasn't what he ordered.
--- NOTE | 2024-01-16 12:57 | USCV_ITS ---
Lucian Mcbride Age: 73 Gender: M : 1950 Exam Date: 01/16/2024 17:08 Ordering Phys: Guerrero Parmar MD Technologist: CT Exam Location: [facility] [place]_ Indication: BP: 85 / 69 HR: 87 Rhythm: Sinus Technical Quality: Adequate MEASUREMENTS (Male / Female) Normal Values 2D ECHO LV Ejection Fraction MOD 4C 46.3 % LV Ejection Fraction MOD 2C 31.9 % LV Ejection Fraction 2C AL 33.1 % RA Systolic Volume 4C AL 63.2 ml RA Systolic Volume 4C MOD 62.6 ml LA Sys Volume AL 86.8 cm cubed LA Sys Volume Index AL 40.2 cm cubed/m squared IVC Diameter 2.1 cm M-MODE LA Ao Ratio MM 1.2 AV Cusp Separation MM 1.8 cm DOPPLER AV Peak Velocity 155.0 cm/s LVOT Peak Velocity 67.0 cm/s MV Peak Velocity 92.0 cm/s MV Area PHT 4.9 cm squared Mitral E to A Ratio 2.6 TV Peak Velocity 266.8 cm/s TR Peak Velocity 308.0 cm/s TR Peak Gradient 37.9 mmHg TR Mean Velocity 227.0 cm/s TR Mean Gradient 22.7 mmHg TR Velocity Time Integral 86.8 cm TV Peak E Velocity 74.0 cm/s PV Peak Velocity 84.5 cm/s FINDINGS Left Ventricle Tecnically limited quality echocardiogram because of poor ultrasonic windows. Grossly LV systolic function is moderate to severely reduced with EF of 30 to 35%. Accurate assessment of regional wall motion abnormalities not possible because of limited visualization. Right Ventricle Grossly normal Right Atrium Normal in size Left Atrium Normal in size Mitral Valve Structurally normal mitral valve. Mild mitral regurgitation. Aortic Valve Structurally normal aortic valve. Not well visualized Tricuspid Valve Mild tricuspid regurgitation. RVSP is 35-40mmHg. Mild pulmonary hypertension Pulmonic Valve Not well visualized Pericardium Normal Aorta Normal in size IVC Not well visualized CONCLUSIONS Technically limited quality echocardiogram because of poor ultrasonic windows. Grossly LV systolic function is moderate to severely reduced with EF of 30 to 35%. Regional wall motion abnormalities cannot accurately be assessed because of limited visualization. Mild mitral regurgitation. Mild tricuspid regurgitation. Mild pulmonary hypertension. Can not compare with prior echocardiogram because of limited quality images. Recommend limited echo with contrast to better assess the regional wall motion abnormalities Zander Jerry MD (Electronically Signed) Final Date: 17 January 2024 11:13 S
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
--- NOTE | 2024-01-16 18:44 | PM.CONSULT ---
Providers/Reason For Consult Consulting Physician/Specialty*: KENYETTA Hubbard MD /cardiology Reason for Consult*: Patient with chest pain, atrial fibrillation with rapid ventricular rate Requesting Physician: Dr. Parmar Attending Physician: Guerrero Parmar MD History of Present Illness History of Present Illness Lucian Mcbride is a 73 year old male with a history of congestive heart failure, atrial fibrillation, on long-term oral anticoagulation, presenting with complaints of increasing episodes of chest pain and some shortness of breath. He was found to be in atrial fibrillation with rapid ventricular rate. Cardiology consult is requested for further cardiac evaluation recommendations. Patient is a very poor historian. He is known to have bipolar disorder. He has very agitated this morning. He did not want to see me because of the color. But this evening he changed mind. According the patient, he been having increasing episodes of chest pain lately. The pain is in the middle of the chest, radiating to both arms and associated with some shortness of breath. He was taking sublingual nitroglycerin which gave him some relief for a while but then the pain comes back. According to him, the pain may last 30 to 40 minutes and then gradually subsides with the nitro. He did not have any associated palpitation, dizziness or syncopal episodes. No fever, chills or cough. No other associated symptoms or radiation of pain. This patient has been having episodes of chest pain since the beginning of this year. He was seen by me in March of this year with complaints of chest pain and shortness of breath. He had a Myocardial perfusion imaging in April of this year and was found to have multiple areas of fixed defects with very small areas of reversible defects. The transient ischemic dilatation ratio was slightly elevated. The echocardiogram revealed diffuse hypokinesis of the left ventricle with a diminished LV ejection fraction of 45%. In view of the patient's ongoing chest pain, abnormal echocardiogram and the Myocardial perfusion imaging I recommended a cardiac catheterization to further evaluate his symptoms. Apparently the patient did not want to undergo any invasive procedures at that time. Patient has a history of heart failure and pain to [facility] emergency room multiple times with the decompensated heart failure. But lately he has been doing okay with the medications. Patient is known to have bipolar disorder since 1987. He also has a history of chronic kidney disease because of the kidney stones for which he underwent multiple lithotripsies. Patient has no previous history for coronary disease or myocardial infarction. Patient states he has not been well for quite some time. Patient does smoke daily, alcohol use, and denies any street drugs. Patient states he does have a family history cardiac disease on his fathers side. The details are not available at this time. Review of Systems Narrative: CONSTITUTIONAL: No fever or chills. EYES: No blurring of vision or other visual disturbances lately. ENT: No hoarseness of voice, auditory disturbances or sore throat. CARDIOVASCULAR: As mentioned above. RESPIRATORY: History of COPD and ongoing smoking abuse GASTROINTESTINAL: No hematemesis or melena. GENITOURINARY: History of kidney stones INTEGUMENTARY: No skin rashes or history of skin cancer. NEURO: No transient ischemic attacks or amaurosis. PSYCHIATRIC: No history of psychosis or major depression. HEMATOLOGIC: No bleeding disorders or significant anemia. ENDOCRINE: No history of polyuria or polydipsia. MUSCULOSKELETAL: Patient is known to have chronic pain ALLERGY/IMMUNOLOGY: As mentioned above. Medications/Allergies Home Medications Medication Instructions Recorded Confirmed Last Taken Type alprazolam 0.25 mg tablet 0.125 mg PO TID 04/04/23 01/16/24 Unknown History apixaban 5 mg tablet (Eliquis) 5 mg PO BID 04/04/23 01/16/24 Unknown History potassium chloride 10 mEq 10 meq PO DAILY 04/04/23 01/16/24 Unknown History tablet,extended release (Klor-Con) nitroglycerin 0.4 mg sublingual 0.4 mg sublingual Q5M PRN chest 01/01/24 01/16/24 Unknown Rx tablet pain #30 tabs albuterol sulfate 90 mcg/actuation 1 - 2 puff inhalation Q6H PRN 01/16/24 01/16/24 Unknown History aerosol inhaler Wheezing amiodarone 200 mg tablet (Pacerone) 400 mg (2 x 200 mg) PO BID #90 tabs 01/17/24 Unknown Rx aspirin 81 mg tablet,delayed 81 mg PO DAILY #30 tabs 01/17/24 Unknown Rx release furosemide 20 mg tablet 20 mg PO DAILY@0800 #30 tabs 01/17/24 Unknown Rx pantoprazole 40 mg tablet,delayed 40 mg PO BID #60 tabs 01/17/24 Unknown Rx release (Protonix) pantoprazole 40 mg tablet,delayed 40 mg PO DAILY #30 tabs 01/17/24 Unknown Rx release (Protonix) Allergies Allergy/AdvReac Type Severity Reaction Status Date / Time ranolazine Allergy Mild ADR-Dizzine Verified 11/16/23 11:10 ss hydrochlorothiazide Allergy Unknown Verified 12/14/23 13:43 triamterene Allergy Unknown Verified 12/14/23 13:43 codeine AdvReac Mild VOMIT Verified 11/16/23 11:10 Current Medications Generic Name Dose Route Start Last Admin Trade Name Freq PRN Reason Stop Dose Admin Alprazolam 0.5 mg 01/15/24 23:14 01/16/24 14:05 Alprazolam 0.5 Mg Tablet PO 0.5 mg TID PRN Administration ANXIETY Aspirin 81 mg 01/16/24 09:00 01/16/24 08:05 Aspirin 81 Mg Ec Tablet PO 81 mg DAILY BRITNEY Administration Enoxaparin Sodium 80 mg 01/16/24 08:00 01/16/24 08:05 Enoxaparin 80 Mg/0.8 Ml Syringe SUBCUT 80 mg Q12H BRITNEY Administration Furosemide 20 mg 01/16/24 09:00 01/16/24 08:05 Furosemide 20 Mg Tablet PO 20 mg DAILY@0800 BRITNEY Administration Amiodarone HCl/Dextrose 360 mg in 200 mls @ 0 mls/hr 01/15/24 18:04 01/16/24 15:56 Nexterone IV 0.5 mg/min .Q0M BRITNEY 16.67 mls/hr Administration Protocol Per Protocol Levofloxacin 750 mg 01/16/24 06:00 01/16/24 06:23 Levofloxacin 750 Mg Tablet PO 750 mg DAILY@0600 BRITNEY Administration Protocol Ondansetron HCl 4 mg 01/15/24 21:42 01/16/24 08:52 Ondansetron 2 Mg/Ml Sdv 2 Ml IVP 4 mg Q6H PRN Administration NAUSEA AND VOMITING Pantoprazole Sodium 40 mg 01/16/24 07:30 01/16/24 08:02 Pantoprazole 40 Mg Sdv IVP 40 mg Q12H BRITNEY Administration Potassium Chloride 20 meq 01/16/24 09:00 01/16/24 08:05 Potassium Chloride Er 20 Meq Tablet PO 20 meq DAILY BRITNEY Administration Senna/Docusate Sodium 1 tab 01/16/24 09:00 01/16/24 08:05 Sennosides-Docusate Tablet PO 1 tab DAILY BRITNEY Administration PFSH Acute PFSH: Medical History Bipolar 2 disorder Essential hypertension History of kidney stones Surgical History H/O lithotripsy History of right knee surgery Social History Smoking and tobacco/nicotine status: former use of tobacco/nicotine (about a month ago) Alcohol intake: former Substance/Drug Use: current Substance/Drug use frequency: daily Vitals/I&O/Wt Last Vital Signs Temp 97.3 F L 01/16/24 17:40 Pulse 91 01/16/24 16:40 Resp 91 H 01/16/24 17:40 BP 125/98 01/16/24 17:40 Pulse Ox 96 01/16/24 17:40 O2 Del Method Room Air 01/16/24 08:56 01/16/24 01/16/24 01/16/24 06:59 14:59 22:59 Intake Total 189.425 / 5989.821 4763 / 1300 550 / 1850 Output Total 500 / 500 Balance 189.425 / 1239.425 800 / 800 550 / 1350 Weight last 48 hrs Weight 195 lb Weight 195 lb 1.745 oz Weight 185 lb Physical Exam Narrative: GENERAL: The patient is alert and oriented times three. Not in any acute distress. HEENT: Moderate pallor. No icterus or lymphadenopathy.Oral cavity: There are no mucous membrane lesions. NECK: Trachea appears to be central. No masses noted. No JVD or thyromegaly appreciated. RESPIRATORY: Chest is symmetrical. No intercostals muscle retraction or any accessory muscle activation. There is no chest wall tenderness. Breath sounds are heard bilaterally. No rales or rhonchi heard. No evidence of any consolidation. BREASTS: Deferred. HEART: The heart sounds are normal. No S3 or S4. No significant murmurs. No pericardial rub ABDOMEN: No vessel pulsations or distention. No tenderness. No organomegaly appreciated. Bowel sounds are normally heard. : Deferred. RECTAL: Deferred. LYMPHATIC: No lymphadenopathy noted in the neck. EXTREMITIES: No edema or cyanosis. No clubbing. The dorsalis pedis and posterior pulses are weak bilaterally. MUSCULOSKELETAL: Patient has a tender growth on the dorsum of the right fourth toe. There is a tender and firm mass on the plantar aspect of the first metatarsal bone. This has been there for many years ,according to the patient SKIN: There are no significant rashes or ecchymosis NEUROPSYCHIATRIC: The patient is alert and oriented x3. Seems to be more cooperative. No focal motor deficits Data 01/17/24 04:18 01/17/24 04:18 Other Labs: Laboratory Last Values WBC 5.51 10^3/uL (3.29-11.43) 01/16/24 06:09 RBC 3.94 10^6/uL (3.85-5.65) 01/16/24 06:09 Hgb 8.10 g/dL (11.27-16.99) L 01/16/24 06:09 Hct 27.8 % (37-53) L 01/16/24 06:09 MCV 70.6 fl (82-101) L 01/16/24 06:09 MCH 20.6 pg (27-33) L 01/16/24 06:09 MCHC 29.1 g/dL (30-55) L 01/16/24 06:09 RDW 19.9 % (12.1-15.1) H 01/16/24 06:09 Plt Count 230 10^3/cmm (157-399) D 01/16/24 06:09 MPV 10.6 fL (7.4-10.4) H 01/16/24 06:09 Neut % (Auto) 56.7 % 01/16/24 06:09 Lymph % (Auto) 31.8 % 01/16/24 06:09 [place] % (Auto) 10.2 % 01/16/24 06:09 Eos % (Auto) 0.4 % 01/16/24 06:09 Baso % (Auto) 0.5 % 01/16/24 06:09 Neut # (Auto) 3.13 10^3/uL (1.8-7.7) 01/16/24 06:09 Lymph # (Auto) 1.8 10^3/uL (0.8-4.8) 01/16/24 06:09 [place] # (Auto) 0.6 10^3/uL (0.2-0.9) 01/16/24 06:09 Eos # (Auto) 0.0 10^3/uL (0.0-0.8) 01/16/24 06:09 Baso # (Auto) 0.0 10^3/uL (0.0-0.1) 01/16/24 06:09 Nucleated RBC % (auto) 0 % 01/16/24 06:09 Nucleated RBCs # 0.0 /100WBC 01/16/24 06:09 Sodium 134 mmol/L (136-145) L 01/16/24 06:09 Potassium 3.8 mmol/L (3.5-5.1) 01/16/24 06:09 Chloride 95 mmol/L (98-107) L 01/16/24 06:09 Carbon Dioxide 26 mmol/L (22-29) 01/16/24 06:09 Anion Gap 16.8 (5-19) 01/16/24 06:09 BUN 13 mg/dL (8-23) 01/16/24 06:09 Creatinine 1.3 mg/dL (0.7-1.2) H 01/16/24 06:09 GFR Calculation Not Reportable 01/16/24 06:09 Glucose 106 mg/dL (65-115) 01/16/24 06:09 Calculated Osmolality 279 mOsm/kg (285-295) L 01/16/24 06:09 Lactic Acid 8.1 mmol/L (0.5-2.2) H* 01/15/24 18:03 Lactic Acid (Sepsis) 6.8 mmol/L (0.5-2.2) H* 01/15/24 20:40 Calcium 8.2 mg/dL (8.5-10.5) L 01/16/24 06:09 Magnesium 1.6 mg/dL (1.7-2.3) L 01/16/24 06:09 Iron 13 ug/dL (59-158) L 01/16/24 00:24 TIBC 246 mcg/dl 01/16/24 00:24 % Saturation 5.2 % (20-50) L 01/16/24 00:24 Unsat Iron Binding 233 ug/dL (112-347) 01/16/24 00:24 Ferritin 45 ng/mL (30-400) 01/16/24 00:24 Total Bilirubin 1.0 mg/dL (0.15-1.2) 01/15/24 18:03 AST 33 U/L (0-40) 01/15/24 18:03 ALT 13 U/L (0-41) 01/15/24 18:03 Alkaline Phosphatase 308 U/L (40-130) H 01/15/24 18:03 Troponin T Baseline 77 ng/L (0-15) H 01/15/24 18:03 Troponin T 120 Minute 66.03 ng/L (0-15) H 01/15/24 20:40 Delta Troponin T -10.97 ABS# (0-10) L 01/15/24 20:40 Troponin T Hi Sens 6Hr 64.32 ng/L (0-15) H 01/16/24 00:24 Troponin T Hi Sens 6Hr Delta -12.68 ng/L (0-12) L 01/16/24 00:24 C-Reactive Protein 45.2 mg/L (0.0-4.9) H 01/16/24 06:09 NT-Pro-B Natriuret Pep 3335 pg/mL (0-125) H 01/15/24 18:03 Total Protein 6.3 g/dL (6.6-8.7) L 01/15/24 18:03 Albumin 3.5 g/dL (3.5-5.2) 01/15/24 18:03 Globulin 2.8 g/dL (1.3-4.6) 01/15/24 18:03 Vitamin B12 1041 pg/mL (232-1245) 01/15/24 20:40 Procalcitonin 0.27 ng/mL (0-0.5) 01/15/24 18:03 TSH 9.05 uIU/mL (0.27-4.20) H 01/15/24 20:40 Urine Color Yellow (Yellow) 01/16/24 06:05 Urine Appearance Clear (CLEAR) 01/16/24 06:05 Urine pH 5.5 (5-7) 01/16/24 06:05 Ur Specific [place] 1.012 (1.005-1.030) 01/16/24 06:05 Urine Protein Negative (Negative) 01/16/24 06:05 Urine Glucose (UA) Negative (Normal) 01/16/24 06:05 Urine Ketones Negative (Negative) 01/16/24 06:05 Urine Blood Negative (Negative) 01/16/24 06:05 Urine Nitrate Negative (Negative) 01/16/24 06:05 Urine Bilirubin Negative (Negative) 01/16/24 06:05 Urine Urobilinogen 1.0 mg/dL (Negative) 01/16/24 06:05 Ur Leukocyte Esterase Negative (Negative) 01/16/24 06:05 Amorphous Sediment Not Reportable 01/16/24 06:05 Urine Opiates Screen Positive ng/mL (Negative) H 01/16/24 06:05 Ur Barbiturates Screen Negative ng/mL (Negative) 01/16/24 06:05 Ur Phencyclidine Scrn Negative ng/mL (Negative) 01/16/24 06:05 Ur Amphetamines Screen Negative ng/mL (Negative) 01/16/24 06:05 U Benzodiazepines Scrn Positive ng/mL (Negative) H 01/16/24 06:05 Urine Cocaine Screen Negative ng/mL (Negative) 01/16/24 06:05 U Marijuana (THC) Screen Positive ng/mL (Negative) H 01/16/24 06:05 Blood Type O Positive 01/16/24 08:03 Rho(D) Type Rh positive 01/16/24 08:03 Antibody Screen Negative 01/16/24 08:03 Crossmatch See Detail 01/16/24 08:03 Micro: Microbiology 01/15/24 19:45 Blood Culture - Preliminary Blood SPECIMEN COLLECTED 01/15/24 19:41 Blood Culture - Preliminary Blood SPECIMEN COLLECTED EKG 1: My Interpretation: EKG showed atrial fibrillation with rapid ventricular rate. Right bundle branch block. Diffuse nonspecific T wave changes. Other data: EKG from today Atrial fibrillation rapid ventricular rate. Right bundle branch block pattern. Nonspecific T wave changes. Myocardial perfusion imaging in April of this year 1. Myocardial perfusion imaging revealing moderate area of moderate to severely decreased persistent tracer uptake in the mid anterior and all the apical segments with a very small area of reversible defect suggesting myocardial scarring in the distribution of all the 3 coronary arteries with a very small area of tana-infarction ischemia. Slightly elevated transischemic dilatation ratio may suggest endocardial ischemia 2. Moderately diminished LV ejection fraction of 32% 3. LV wall motion analysis revealed diffuse hypokinesia of the left ventricular 4. Moderately dilated LV cavity with an end-systolic volume of 168 ml. 5. Some features of right ventricular hypertrophy. No similar previous studies are available for comparison Echocardiogram in April of this year Mild left ventricular hypertrophy. Diffuse hypokinesia of the left ventricule with an LV ejection fraction of around 45% (visual). Moderately increased left atrial size. Mildly increased right atrial size. Moderate mitral valve regurgitation. [id number] tricuspid valve regurgitation. Estimated pulmonary artery peak systolic pressure 21 mmHg. Thickened aortic valve. There is no pericardial effusion. There are no intracardiac masses. No similar previous studies are available for comparison A&P Assessment and plan (1) Atrial fibrillation with RVR: Patient is on IV amiodarone. The heart rate seems to be getting under control. May be started on p.o. amiodarone for 100 mg twice daily once the IV infusion is completed. (2) Abnormal cardiovascular stress test: In view of the patient's increasing episodes of chest pain and the abnormal Myocardial perfusion imaging, in order to further evaluate his coronary status, a cardiac catheterization would be appropriate. This was discussed with the patient in detail. He is not wanting to undergo cardiac catheterization at this time. He might consider this later on. (3) Bipolar 2 disorder: Patient history of intermittent psychotic episodes. Management as per the psychiatrist. (4) Chest pain: Currently he is chest pain-free. May continue on the current medication. Will keep him on a low-dose of nitrates by mouth Qualifiers: Chest pain type: other chest pain Qualified Code(s): R07.89 - Other chest pain (5) Cardiomyopathy: Patient is on Entresto. He also seems to be in mild heart failure. He may be carefully treated with diuretics. Qualifiers: Cardiomyopathy type: other Qualified Code(s): I42.8 - Other cardiomyopathies (6) Weight loss: Etiology? (7) Anemia: The etiology is unclear. He is undergoing workup. He is off the Eliquis. Currently he is on heparin Qualifiers: Anemia type: unspecified type Qualified Code(s): D64.9 - Anemia, unspecified Plan Patient restarted on p.o. amiodarone, once the IV infusion is finished. Also may consider a low-dose of beta-mitzi, if the blood pressure tolerates. Based on the clinical progress, further recommendations will be made. Thank for the opportunity to evaluate this patient and make these recommendations Coding Level of Care Code 29081 Diagnoses Atrial fibrillation with RVR I48.91 Abnormal cardiovascular stress test R94.39 Bipolar 2 disorder F31.81 Other chest pain R07.89 Chest pain type: other chest pain Other cardiomyopathy I42.8 Cardiomyopathy type: other Weight loss R63.4 Anemia, unspecified type D64.9 Anemia type: unspecified type
[2024-01-16 20:18] LABS: Hematocrit 31.3 % (37-53)
--- NOTE | 2024-01-16 23:50 | PC.NURSE ---
Dr. Guevara made aware Blood culture one of four reported by lab to be positive for gram + Cocci in pairs and tetrads - acknowledged results, no further order given at this time.
[2024-01-17] VITALS (45 sets, daily range): BP systolic 87–117; BP diastolic 57–86; PULSE 78–120; RESP 11–26; TEMP 36.2–36.8; O2SAT 75–99
[2024-01-17 05:02] LABS: Basophils % 0.4 %; Eosinophils % 0.6 %; Hematocrit 30.5 % (37-53); Lymphocytes # 1.5 10^3/uL (0.8-4.8); Mean Corpuscular HGB Conc 29.8 g/dL (30-55); Mean Corpuscular Hemoglobin 21.6 pg (27-33); Mean Corpuscular Volume 72.3 fl (82-101); Mean Platelet Volume 10.7 fL (7.4-10.4); Monocytes # 0.6 10^3/uL (0.2-0.9); Monocytes % 11.7 %; Neutrophils # 3.21 10^3/uL (1.8-7.7); Neutrophils % 59.7 %; Nucleated Red Blood Cells % 0 %; Platelet Count 214 10^3/cmm (157-399); Red Blood Count 4.22 10^6/uL (3.85-5.65); Red Cell Distribution Width 21.5 % (12.1-15.1); White Blood Count 5.37 10^3/uL (3.29-11.43)
[2024-01-17] MEDS: amiodarone 200 mg Tablet 400 MG PO (05:11)
[2024-01-17] MEDS: levoFLOXacin 750 mg Tablet PO (05:11)
[2024-01-17 05:33] LABS: Alanine Aminotransferase 9 U/L (0-41); Albumin Level 2.8 g/dL (3.5-5.2); Alkaline Phosphatase 231 U/L (40-130); Aspartate Amino Transferase 25 U/L (0-40); Blood Urea Nitrogen 10 mg/dL (8-23); Calcium 8.4 mg/dL (8.5-10.5); Carbon Dioxide 25 mmol/L (22-29); Chloride 99 mmol/L (98-107); Creatinine Clr Calc Pharmacy 68.1508; Globulin 2.6 g/dL (1.3-4.6); Glucose 82 mg/dL (65-115); Magnesium 1.9 mg/dL (1.7-2.3); Osmolality Calculated 284 mOsm/kg (285-295); Sodium 138 mmol/L (136-145); Total Bilirubin 1.2 mg/dL (0.15-1.2); Total Protein 5.4 g/dL (6.6-8.7)
[2024-01-17] MEDS: pantoprazole 40 mg SDV IVP (06:30)
[2024-01-17] MEDS: FUROsemide 20 mg Tablet PO (07:31)
[2024-01-17] MEDS: aspirin 81 mg EC Tablet PO (07:31)
[2024-01-17] MEDS: potassium chloride ER 20 mEq Tablet PO (07:33)
[2024-01-17] MEDS: ALPRAZolam 0.5 mg Tablet PO (07:33)
[2024-01-17] MEDS: iron sucrose 20 mg/mL SDV 200 MG IVP (07:34)
--- NOTE | 2024-01-17 12:49 | P.DS_ITS ---
Discharge Providers Date of Admission: 01/15/24 19:37 Date of Discharge: January 17, 2024 Attending Provider at Admission: Sharita Guevara MD Attending Provider at Discharge: Guerrero Parmar MD Diagnoses at Discharge Discharge Diagnosis (1) Bipolar 2 disorder: Status: Chronic (2) Suicidal ideation: Status: Acute Reason for Visit Reason for Visit: conjestive heart failure Hospital Course Hospital Course Patient is 73-year-old white male with history of bipolar disorder who presented to the hospital with chest pain. He had already seen cardiology as an outpatient. He was found to be in A-fib with RVR, and blood pressure was somewhat low. 80 of his outpatient medicines were discontinued. He was placed on an amiodarone drip. Oral antibiotics were continued to complete a course he was on for possible pneumonia. Cardiology was consulted. The following day the patient's heart rate was under better control on the amiodarone drip. He was resistant to further cardiac workup with angiogram even though it was explained his nuclear stress test was abnormal in April 2023. He was significantly anemic, so a transfusion of 1 unit packed red blood cells was given considering his chest pain. Fecal Hemoccult was ordered, but never collected during his hospital stay. An iron transfusion of Venofer was given on January 16. He had no obvious active GI bleeding in the hospital. Protonix IV was given during his hospital stay. With this treatment, chest pain resolved. He was feeling very good on January 16, and wanting to go home. He was considering further workup which she had been refusing in regards to cardiac standpoint but wanted to go home first. Secondary to significant anemia I also recommended EGD and colonoscopy which he related he would consider as an outpatient. Considering his active medical problems have been addressed, it was thought he would be stable for discharge to home with close follow-up with cardiology and primary care provider. He will go on an amiodarone taper, with final dose to be determined by cardiology. He will take Protonix twice daily. Many of his medications were reduced secondary to low blood pressure. He had already completed his course of antibiotic. He had made some passive frets during his hospital stay with concern for his mental health. Psychiatry was consulted, who evaluated the patient. When I talked and discussed with psychiatry regarding the patient on January 15 and , they reported they were going to resend his 96-hour hold that was placed by the admitting physician, he had decisional capacity at this time, and was not actively suicidal. He was encouraged to get psychiatric follow-up as an outpatient at behavioral health clinic. He is to return if he has any significant GI bleeding, worsening shortness of breath, severe recurrent chest pain not responsive to limited sublingual nitroglycerin. He was able to ask questions and agreed with plan. Physical Exam Narrative: General Exam no distress Neck is supple Cardiovascular irregular irregular with controlled rate Lungs clear Abdomen soft Extremities no cyanosis clubbing or edema Discharge Data Studies Completed and Pending Completed Studies During Hospitalization Category Date Time Status XR chest 1V portable [id number] Stat Exams 01/15/24 17:41 Completed US echo complete [CV. echo complete* [id number]] Routine Ultrasound 01/16/24 12:57 Completed US renal BI* [id number] Routine Ultrasound 01/16/24 07:38 Completed Pending at discharge Category Date Time Status Blood Culture Stat Lab 01/15/24 19:45 Results Fecal Occult Blood [Immunochemical Fecal OCB] Routine Lab 01/16/24 07:19 Uncollected Radiology Impressions Chest X-Ray 01/15/24 17:41 IMPRESSION: 1. Mild enlarged cardiac silhouette. 2. Pulmonary atelectasis or acute infiltrates within left lower chest. 3. Small left pleural effusion. Renal Ultrasound 01/16/24 07:38 IMPRESSION: Bilateral renal cysts are seen, consider cross-sectional imaging if there is further clinical necessity as this study was somewhat limited in assessment. Laboratory Results WBC 5.37 10^3/uL (3.29-11.43) 01/17/24 04:18 RBC 4.22 10^6/uL (3.85-5.65) 01/17/24 04:18 Hgb 9.10 g/dL (11.27-16.99) L 01/17/24 04:18 Hct 30.5 % (37-53) L 01/17/24 04:18 MCV 72.3 fl (82-101) L 01/17/24 04:18 MCH 21.6 pg (27-33) L 01/17/24 04:18 MCHC 29.8 g/dL (30-55) L 01/17/24 04:18 RDW 21.5 % (12.1-15.1) H 01/17/24 04:18 Plt Count 214 10^3/cmm (157-399) 01/17/24 04:18 MPV 10.7 fL (7.4-10.4) H 01/17/24 04:18 Neut % (Auto) 59.7 % 01/17/24 04:18 Lymph % (Auto) 27.0 % 01/17/24 04:18 [place] % (Auto) 11.7 % 01/17/24 04:18 Eos % (Auto) 0.6 % 01/17/24 04:18 Baso % (Auto) 0.4 % 01/17/24 04:18 Neut # (Auto) 3.21 10^3/uL (1.8-7.7) 01/17/24 04:18 Lymph # (Auto) 1.5 10^3/uL (0.8-4.8) 01/17/24 04:18 [place] # (Auto) 0.6 10^3/uL (0.2-0.9) 01/17/24 04:18 Eos # (Auto) 0.0 10^3/uL (0.0-0.8) 01/17/24 04:18 Baso # (Auto) 0.0 10^3/uL (0.0-0.1) 01/17/24 04:18 Nucleated RBC % (auto) 0 % 01/17/24 04:18 Nucleated RBCs # 0.0 /100WBC 01/17/24 04:18 Sodium 138 mmol/L (136-145) 01/17/24 04:18 Potassium 4.0 mmol/L (3.5-5.1) 01/17/24 04:18 Chloride 99 mmol/L (98-107) 01/17/24 04:18 Carbon Dioxide 25 mmol/L (22-29) 01/17/24 04:18 Anion Gap 18.0 (5-19) 01/17/24 04:18 BUN 10 mg/dL (8-23) 01/17/24 04:18 Creatinine 1.1 mg/dL (0.7-1.2) 01/17/24 04:18 GFR Calculation Not Reportable 01/17/24 04:18 Glucose 82 mg/dL (65-115) 01/17/24 04:18 Calculated Osmolality 284 mOsm/kg (285-295) L 01/17/24 04:18 Lactic Acid 8.1 mmol/L (0.5-2.2) H* 01/15/24 18:03 Lactic Acid (Sepsis) 6.8 mmol/L (0.5-2.2) H* 01/15/24 20:40 Calcium 8.4 mg/dL (8.5-10.5) L 01/17/24 04:18 Magnesium 1.9 mg/dL (1.7-2.3) 01/17/24 04:18 Iron 13 ug/dL (59-158) L 01/16/24 00:24 TIBC 246 mcg/dl 01/16/24 00:24 % Saturation 5.2 % (20-50) L 01/16/24 00:24 Unsat Iron Binding 233 ug/dL (112-347) 01/16/24 00:24 Ferritin 45 ng/mL (30-400) 01/16/24 00:24 Total Bilirubin 1.2 mg/dL (0.15-1.2) 01/17/24 04:18 AST 25 U/L (0-40) 01/17/24 04:18 ALT 9 U/L (0-41) 01/17/24 04:18 Alkaline Phosphatase 231 U/L (40-130) H 01/17/24 04:18 Troponin T Baseline 77 ng/L (0-15) H 01/15/24 18:03 Troponin T 120 Minute 66.03 ng/L (0-15) H 01/15/24 20:40 Delta Troponin T -10.97 ABS# (0-10) L 01/15/24 20:40 Troponin T Hi Sens 6Hr 64.32 ng/L (0-15) H 01/16/24 00:24 Troponin T Hi Sens 6Hr Delta -12.68 ng/L (0-12) L 01/16/24 00:24 C-Reactive Protein 45.2 mg/L (0.0-4.9) H 01/16/24 06:09 NT-Pro-B Natriuret Pep 3335 pg/mL (0-125) H 01/15/24 18:03 Total Protein 5.4 g/dL (6.6-8.7) L 01/17/24 04:18 Albumin 2.8 g/dL (3.5-5.2) L 01/17/24 04:18 Globulin 2.6 g/dL (1.3-4.6) 01/17/24 04:18 Vitamin B12 1041 pg/mL (232-1245) 01/15/24 20:40 Procalcitonin 0.27 ng/mL (0-0.5) 01/15/24 18:03 TSH 9.05 uIU/mL (0.27-4.20) H 01/15/24 20:40 Urine Color Yellow (Yellow) 01/16/24 06:05 Urine Appearance Clear (CLEAR) 01/16/24 06:05 Urine pH 5.5 (5-7) 01/16/24 06:05 Ur Specific [place] 1.012 (1.005-1.030) 01/16/24 06:05 Urine Protein Negative (Negative) 01/16/24 06:05 Urine Glucose (UA) Negative (Normal) 01/16/24 06:05 Urine Ketones Negative (Negative) 01/16/24 06:05 Urine Blood Negative (Negative) 01/16/24 06:05 Urine Nitrate Negative (Negative) 01/16/24 06:05 Urine Bilirubin Negative (Negative) 01/16/24 06:05 Urine Urobilinogen 1.0 mg/dL (Negative) 01/16/24 06:05 Ur Leukocyte Esterase Negative (Negative) 01/16/24 06:05 Amorphous Sediment Not Reportable 01/16/24 06:05 Urine Opiates Screen Positive ng/mL (Negative) H 01/16/24 06:05 Ur Barbiturates Screen Negative ng/mL (Negative) 01/16/24 06:05 Ur Phencyclidine Scrn Negative ng/mL (Negative) 01/16/24 06:05 Ur Amphetamines Screen Negative ng/mL (Negative) 01/16/24 06:05 U Benzodiazepines Scrn Positive ng/mL (Negative) H 01/16/24 06:05 Urine Cocaine Screen Negative ng/mL (Negative) 01/16/24 06:05 U Marijuana (THC) Screen Positive ng/mL (Negative) H 01/16/24 06:05 Blood Type O Positive 01/16/24 08:03 Rho(D) Type Rh positive 01/16/24 08:03 Antibody Screen Negative 01/16/24 08:03 Crossmatch See Detail 01/16/24 08:03 Vitals Last Vital Signs Temp 97.1 F L 01/17/24 09:05 Pulse 100 01/17/24 12:30 Resp 16 01/17/24 12:30 BP 112/86 01/17/24 12:30 Pulse Ox 95 01/17/24 12:30 O2 Del Method Room Air 01/17/24 08:36 Discharge Plan Discharge Patient Disposition: Home Condition: Stable Prescriptions: New aspirin 81 mg Tablet,Delayed Release (Dr/Ec) 81 mg PO DAILY Qty: 30 0RF furosemide 20 mg Tablet 20 mg PO DAILY@0800 Qty: 30 0RF amiodarone [Pacerone] 200 mg Tablet 400 mg PO BID Qty: 90 0RF Rx Instructions: Take 400 mg twice daily for 1 week, then 400 mg once daily for 1 week. Cardiology will instruct you on further taper of dose. pantoprazole [Protonix] 40 mg tablet,delayed release (DR/EC) 40 mg PO DAILY Qty: 30 0RF pantoprazole [Protonix] 40 mg tablet,delayed release (DR/EC) 40 mg PO BID Qty: 60 0RF Continued alprazolam 0.25 mg tablet 0.125 mg PO TID Eliquis 5 mg tablet 5 mg PO BID potassium chloride [Klor-Con 10] 10 mEq tablet extended release 10 meq PO DAILY nitroglycerin 0.4 mg tablet, sublingual 0.4 mg sublingual Q5M PRN (Reason: chest pain) Qty: 30 3RF Rx Instructions: do not exceed 3 doses per episode albuterol sulfate 90 mcg/actuation HFA aerosol inhaler 1 - 2 puff INHALATION Q6H PRN (Reason: Wheezing) Discontinued esomeprazole magnesium [Nexium] 40 mg capsule,delayed release(DR/EC) 40 mg PO DAILY Qty: 90 1RF Rx Instructions: Patient has tried and failed omeprazole bumetanide 1 mg tablet 1 mg PO DAILY Entresto 24-26 mg tablet 1 tab PO BID isosorbide dinitrate 30 mg tablet 30 mg PO BID Rx Instructions: allow nitrate-free interval of 12-14 hrs per 24-hr period diltiazem HCl [Cartia XT] 120 mg capsule,extended release 24hr 120 mg PO DAILY Discharge Orders: Discharge Order (Routine); Ordered 01/17/24 Ordered By: Guerrero Parmar Referrals: Kimberli Lott FNP [Nurse Practitioner] - 7-10 days (CBC and BMP on follow-up.) Discharge Diet: Cardiac Discharge Activity: Increase activity as tolerated Patient Instructions: Opioid Safety Activity Restrictions/Additional Instructions: Take all medicine as prescribed Amiodarone should be 400 mg twice daily for 1 week then 400 mg once daily for 1 week, then instruction per cardiology on follow-up Cardiology follow-up within the next week Primary care provider follow-up in 3 to 5 days BMP and follow-up with primary care provider along with CBC Consider referral to GI regarding anemia. Consideration for EGD and colonoscopy Recommend TSH in approximately 6 weeks Make sure patient has primary care provider to follow him up on discharge. He is requesting somebody in the [place] area. Do not discharge until after with Dr. Caba rescinds is 96-hour hold Discharge Attestations Time Spent in Discharge Care*: greater than 30 min Quality Metrics Clinical Quality Measures [ No reported AMI, CVA or VTE this stay] Coding Level of Care Code 88848 Total time (in minutes) for Discharge: 32 Diagnoses Bipolar 2 disorder F31.81 Suicidal ideation R45.851
--- NOTE | 2024-01-17 13:52 | PM.PN ---
Subjective Subjective: Patient is chest pain-free today. He has decided not to have the angiogram at this time. He may consider this as an outpatient. He remains in atrial fibrillation with a controlled ventricular response rate. According the patient, he is feeling much better.. He had 1 unit of blood transfusion yesterday. Family had some rectal bleed-patient seems to think that is related to hemorrhoidal bleed. He also had a weight loss recently. Has not had any workup. He has been very noncompliant with medical instructions and follow-ups Medications: Medication Review Details: Current Medications Acetaminophen (Acetaminophen 500 Mg Tablet) 500 mg PO Q4H PRN PRN Reason: fever Albuterol/Ipratropium (Ipratropium-Albuterol 3 Ml Neb) 3 ml INHALATION Q6H PRN PRN Reason: SHORTNESS OF BREATH Alprazolam (Alprazolam 0.5 Mg Tablet) 0.5 mg PO TID PRN PRN Reason: ANXIETY Last Admin: 01/17/24 07:33 Dose: 0.5 mg Amiodarone HCl (Amiodarone 200 Mg Tablet) 400 mg PO BID [facility] Last Admin: 01/17/24 05:11 Dose: 400 mg Aspirin (Aspirin 81 Mg Ec Tablet) 81 mg PO DAILY [facility] Last Admin: 01/17/24 07:31 Dose: 81 mg Enoxaparin Sodium (Enoxaparin 80 Mg/0.8 Ml Syringe) 80 mg SUBCUT Q12H [facility] Last Admin: 01/17/24 07:44 Dose: Not Given Furosemide (Furosemide 20 Mg Tablet) 20 mg PO DAILY@0800 [facility] Last Admin: 01/17/24 07:31 Dose: 20 mg Amiodarone HCl/Dextrose (Nexterone) 360 mg in 200 mls @ 0 mls/hr IV .Q0M [facility]; Protocol Last Titration: 01/17/24 06:23 Dose: Infused Levofloxacin (Levofloxacin 750 Mg Tablet) 750 mg PO DAILY@0600 [facility]; Protocol Last Admin: 01/17/24 05:11 Dose: 750 mg Morphine Sulfate (Morphine 4 Mg/Ml Sdv 1 Ml) 2 mg IVP Q4H PRN PRN Reason: SEVERE PAIN Ondansetron HCl (Ondansetron 2 Mg/Ml Sdv 2 Ml) 4 mg IVP Q6H PRN PRN Reason: NAUSEA AND VOMITING Last Admin: 01/16/24 08:52 Dose: 4 mg Pantoprazole Sodium (Pantoprazole 40 Mg Sdv) 40 mg IVP Q12H [facility] Last Admin: 01/17/24 06:30 Dose: 40 mg Potassium Chloride (Potassium Chloride Er 20 Meq Tablet) 20 meq PO DAILY [facility] Last Admin: 01/17/24 07:33 Dose: 20 meq Senna/Docusate Sodium (Sennosides-Docusate Tablet) 1 tab PO DAILY [facility] Last Admin: 01/17/24 07:45 Dose: Not Given Sodium Chloride (Sodium Chloride 0.9% 50 Ml Bag) 50 ml IV PRN PRN PRN Reason: Blood transfusion prime and flush Vitals/I&O/Wt Last Vital Signs Temp 97.1 F L 01/17/24 09:05 Pulse 100 01/17/24 12:30 Resp 16 01/17/24 12:30 BP 112/86 01/17/24 12:30 Pulse Ox 95 01/17/24 12:30 O2 Del Method Room Air 01/17/24 08:36 01/16/24 01/17/24 01/17/24 22:59 06:59 14:59 Intake Total 550 / 1850 200 / 2050 Output Total 115 / 615 825 / 1440 Balance 435 / 1235 -625 / 610 Weight last 48 hrs Weight 190 lb 11.198 oz Weight 195 lb Weight 195 lb 1.745 oz Weight 185 lb Physical Exam Narrative: GENERAL: The patient is alert and oriented times three. Not in any acute distress. HEENT: Moderate pallor. No icterus or lymphadenopathy.Oral cavity: There are no mucous membrane lesions. NECK: Trachea appears to be central. No masses noted. No JVD or thyromegaly appreciated. RESPIRATORY: Chest is symmetrical. No intercostals muscle retraction or any accessory muscle activation. There is no chest wall tenderness. Breath sounds are heard bilaterally. No rales or rhonchi heard. No evidence of any consolidation. BREASTS: Deferred. HEART: The heart sounds are normal. No S3 or S4. No significant murmurs. No pericardial rub ABDOMEN: No vessel pulsations or distention. No tenderness. No organomegaly appreciated. Bowel sounds are normally heard. : Deferred. RECTAL: Deferred. LYMPHATIC: No lymphadenopathy noted in the neck. EXTREMITIES: No edema or cyanosis. No clubbing. The dorsalis pedis and posterior pulses are weak bilaterally. MUSCULOSKELETAL: Patient has a tender growth on the dorsum of the right fourth toe. There is a tender and firm mass on the plantar aspect of the first metatarsal bone. This has been there for many years ,according to the patient SKIN: There are no significant rashes or ecchymosis NEUROPSYCHIATRIC: The patient is alert and oriented x3. Seems to be more cooperative. No focal motor deficits Data 01/17/24 04:18 01/17/24 04:18 Other Labs: Laboratory Last Values WBC 5.37 10^3/uL (3.29-11.43) 01/17/24 04:18 RBC 4.22 10^6/uL (3.85-5.65) 01/17/24 04:18 Hgb 9.10 g/dL (11.27-16.99) L 01/17/24 04:18 Hct 30.5 % (37-53) L 01/17/24 04:18 MCV 72.3 fl (82-101) L 01/17/24 04:18 MCH 21.6 pg (27-33) L 01/17/24 04:18 MCHC 29.8 g/dL (30-55) L 01/17/24 04:18 RDW 21.5 % (12.1-15.1) H 01/17/24 04:18 Plt Count 214 10^3/cmm (157-399) 01/17/24 04:18 MPV 10.7 fL (7.4-10.4) H 01/17/24 04:18 Neut % (Auto) 59.7 % 01/17/24 04:18 Lymph % (Auto) 27.0 % 01/17/24 04:18 [place] % (Auto) 11.7 % 01/17/24 04:18 Eos % (Auto) 0.6 % 01/17/24 04:18 Baso % (Auto) 0.4 % 01/17/24 04:18 Neut # (Auto) 3.21 10^3/uL (1.8-7.7) 01/17/24 04:18 Lymph # (Auto) 1.5 10^3/uL (0.8-4.8) 01/17/24 04:18 [place] # (Auto) 0.6 10^3/uL (0.2-0.9) 01/17/24 04:18 Eos # (Auto) 0.0 10^3/uL (0.0-0.8) 01/17/24 04:18 Baso # (Auto) 0.0 10^3/uL (0.0-0.1) 01/17/24 04:18 Nucleated RBC % (auto) 0 % 01/17/24 04:18 Nucleated RBCs # 0.0 /100WBC 01/17/24 04:18 Sodium 138 mmol/L (136-145) 01/17/24 04:18 Potassium 4.0 mmol/L (3.5-5.1) 01/17/24 04:18 Chloride 99 mmol/L (98-107) 01/17/24 04:18 Carbon Dioxide 25 mmol/L (22-29) 01/17/24 04:18 Anion Gap 18.0 (5-19) 01/17/24 04:18 BUN 10 mg/dL (8-23) 01/17/24 04:18 Creatinine 1.1 mg/dL (0.7-1.2) 01/17/24 04:18 GFR Calculation Not Reportable 01/17/24 04:18 Glucose 82 mg/dL (65-115) 01/17/24 04:18 Calculated Osmolality 284 mOsm/kg (285-295) L 01/17/24 04:18 Lactic Acid 8.1 mmol/L (0.5-2.2) H* 01/15/24 18:03 Lactic Acid (Sepsis) 6.8 mmol/L (0.5-2.2) H* 01/15/24 20:40 Calcium 8.4 mg/dL (8.5-10.5) L 01/17/24 04:18 Magnesium 1.9 mg/dL (1.7-2.3) 01/17/24 04:18 Iron 13 ug/dL (59-158) L 01/16/24 00:24 TIBC 246 mcg/dl 01/16/24 00:24 % Saturation 5.2 % (20-50) L 01/16/24 00:24 Unsat Iron Binding 233 ug/dL (112-347) 01/16/24 00:24 Ferritin 45 ng/mL (30-400) 01/16/24 00:24 Total Bilirubin 1.2 mg/dL (0.15-1.2) 01/17/24 04:18 AST 25 U/L (0-40) 01/17/24 04:18 ALT 9 U/L (0-41) 01/17/24 04:18 Alkaline Phosphatase 231 U/L (40-130) H 01/17/24 04:18 Troponin T Baseline 77 ng/L (0-15) H 01/15/24 18:03 Troponin T 120 Minute 66.03 ng/L (0-15) H 01/15/24 20:40 Delta Troponin T -10.97 ABS# (0-10) L 01/15/24 20:40 Troponin T Hi Sens 6Hr 64.32 ng/L (0-15) H 01/16/24 00:24 Troponin T Hi Sens 6Hr Delta -12.68 ng/L (0-12) L 01/16/24 00:24 C-Reactive Protein 45.2 mg/L (0.0-4.9) H 01/16/24 06:09 NT-Pro-B Natriuret Pep 3335 pg/mL (0-125) H 01/15/24 18:03 Total Protein 5.4 g/dL (6.6-8.7) L 01/17/24 04:18 Albumin 2.8 g/dL (3.5-5.2) L 01/17/24 04:18 Globulin 2.6 g/dL (1.3-4.6) 01/17/24 04:18 Vitamin B12 1041 pg/mL (232-1245) 01/15/24 20:40 Procalcitonin 0.27 ng/mL (0-0.5) 01/15/24 18:03 TSH 9.05 uIU/mL (0.27-4.20) H 01/15/24 20:40 Urine Color Yellow (Yellow) 01/16/24 06:05 Urine Appearance Clear (CLEAR) 01/16/24 06:05 Urine pH 5.5 (5-7) 01/16/24 06:05 Ur Specific [place] 1.012 (1.005-1.030) 01/16/24 06:05 Urine Protein Negative (Negative) 01/16/24 06:05 Urine Glucose (UA) Negative (Normal) 01/16/24 06:05 Urine Ketones Negative (Negative) 01/16/24 06:05 Urine Blood Negative (Negative) 01/16/24 06:05 Urine Nitrate Negative (Negative) 01/16/24 06:05 Urine Bilirubin Negative (Negative) 01/16/24 06:05 Urine Urobilinogen 1.0 mg/dL (Negative) 01/16/24 06:05 Ur Leukocyte Esterase Negative (Negative) 01/16/24 06:05 Amorphous Sediment Not Reportable 01/16/24 06:05 Urine Opiates Screen Positive ng/mL (Negative) H 01/16/24 06:05 Ur Barbiturates Screen Negative ng/mL (Negative) 01/16/24 06:05 Ur Phencyclidine Scrn Negative ng/mL (Negative) 01/16/24 06:05 Ur Amphetamines Screen Negative ng/mL (Negative) 01/16/24 06:05 U Benzodiazepines Scrn Positive ng/mL (Negative) H 01/16/24 06:05 Urine Cocaine Screen Negative ng/mL (Negative) 01/16/24 06:05 U Marijuana (THC) Screen Positive ng/mL (Negative) H 01/16/24 06:05 Blood Type O Positive 01/16/24 08:03 Rho(D) Type Rh positive 01/16/24 08:03 Antibody Screen Negative 01/16/24 08:03 Crossmatch See Detail 01/16/24 08:03 Micro: Microbiology 01/15/24 19:41 Blood Culture - Preliminary Blood 01/15/24 19:45 Blood Culture - Preliminary Blood NEGATIVE TO DATE A&P Assessment and plan (1) Atrial fibrillation with RVR: Patient is switched to p.o. amiodarone 400 mg twice daily. Heart rate seems to be under control. No specific symptoms. (2) Abnormal cardiovascular stress test: In view of the patient's increasing episodes of chest pain and the abnormal Myocardial perfusion imaging, in order to further evaluate his coronary status, a cardiac catheterization would be appropriate. This was discussed with the patient in detail. He is not wanting to undergo cardiac catheterization at this time. He might consider this later on. He wanted to have it done as an outpatient. Will let us know when he is ready for this. (3) Bipolar 2 disorder: Patient history of intermittent psychotic episodes. Management as per the psychiatrist. (4) Chest pain: Currently he is chest pain-free. May continue on the current medication. Will keep him on a low-dose of nitrates by mouth Qualifiers: Chest pain type: other chest pain Qualified Code(s): R07.89 - Other chest pain (5) Cardiomyopathy: Currently had some low blood pressure episodes. The Entresto is on hold at this point. Qualifiers: Cardiomyopathy type: other Qualified Code(s): I42.8 - Other cardiomyopathies (6) Weight loss: Etiology? (7) Anemia: The etiology is unclear. Patient is planning to have workup by his primary care provider as an outpatient Qualifiers: Anemia type: unspecified type Qualified Code(s): D64.9 - Anemia, unspecified Plan Patient may be kept on the amiodarone. I discussed with the patient in detail the implications of the abnormal Myocardial perfusion imaging and the need for further cardiac workup. Because of his anemia and GI bleed, he need to have a GI workup first to rule out any active bleeding. Till then it may be appropriate to hold off on the Eliquis Need to be seen in the [facility] in 1 week by the nurse practitioner Attestations Medical Necessity Statement*: Disposition as per the primary Coding Level of Care Code 23867 Diagnoses Atrial fibrillation with RVR I48.91 Abnormal cardiovascular stress test R94.39 Bipolar 2 disorder F31.81 Other chest pain R07.89 Chest pain type: other chest pain Other cardiomyopathy I42.8 Cardiomyopathy type: other Weight loss R63.4 Anemia, unspecified type D64.9 Anemia type: unspecified type
--- NOTE | 2024-01-17 14:30 | PC.NURSE ---
Personal items returned to patient including clothing, wallet, medications, backpack and cellphone. Money was counted with patient and PSA Rob and 219 dollars and 76 cents was counted and placed back in wallet and handed to patient.
--- NOTE | 2024-01-17 15:56 | PC.NURSE ---
Attempted to make patient a follow up anointment with Dr. Sousa in [facility]. They stated she was no longer practicing there. Patient was informed and he stated that he was very picky about his primary doctor so he would find a new primary doctor. Patient was also educated on follow up appointment with heart care services.
== END 2024-01-17 15:40 | disposition home or self-care (01) | DRG 308 ==
LOC: ER 18:33 → ICU 20:49
PROVIDERS: Admitting Provider Internal Medicine; Emergency Provider Emergency Medicine; Visit Provider Internal Medicine
DX: I48.91 Unspecified atrial fibrillation (principal); J18.9 Pneumonia, unspecified organism; F31.81 Bipolar II disorder; R45.851 Suicidal ideations; I20.0 Unstable angina; I11.0 Hypertensive heart disease with heart failure; I50.9 Heart failure, unspecified; D50.9 Iron deficiency anemia, unspecified; I95.2 Hypotension due to drugs; I43 Cardiomyopathy in diseases classified elsewhere; G89.29 Other chronic pain; M54.50 Low back pain, unspecified; R63.4 Abnormal weight loss; Z68.26 Body mass index [BMI] 26.0-26.9, adult; R94.39 Abnormal result of other cardiovascular function study; Z87.891 Personal history of nicotine dependence; Z79.01 Long term (current) use of anticoagulants; Z79.82 Long term (current) use of aspirin; Z91.199 Patient's noncompliance with other medical treatment and regimen due to unspecified reason
CPT/HCPCS: 36415; 36430; 71045; 76770; 80048; 80053; 80306; 81003; 82607; 82728; 83540; 83550; 83605; 83735; 83880; 84145; 84443; 84484; 85014; 85018; 85025; 86140; 86850; 86900; 86920; 87040; 87077; 87150; 87186; 87205; 93005; 93306; 96365; 96366; 96367; 96372; 96374; 96375; 96376; 99285; J0282; J0283; J1171; J1650; J1756; J2270; J2405; J2470; J2543; J3370; J3475; J7030; J7050; P9016